=== PATIENT | female | born 1965 | race Caucasian/White ===

== ENCOUNTER → 2016-08-26 | Outpatient (CLI) | payer BC ==
[~2016-08-26] MED LIST: ATOR10TA82 PO; HYDR-5688 PO; HYDR200T5 PO; LOSA50TA6 PO; MAGN250T22 PO; METO50TA7 PO; ONDA4TAB46 PO; PANT1TAB48 PO; RANI300T2 PO; SERT-234 PO; SUMA100T16 PO; URC10 PO
[2016-08-26 15:10] LABS: BLOOD UREA NITROGEN 16 mg/dl (7-18); CREATININE 0.62 mg/dl (0.60-1.20)
== END | disposition home or self-care (01) ==
LOC: C.LAB 14:12
DX: K11.9 Disease of salivary gland, unspecified (principal)

== ENCOUNTER → 2016-08-29 | Outpatient (CLI) | payer BC ==
[~2016-08-29] MED LIST changes: +OPTIRAY 320 IV PRN
--- NOTE | 2016-08-29 08:20 | DIAGNOSTIC IMAGING REPORT ---
CT soft tissue neck SOFT TISSUE NECK COMBO CLINICAL HISTORY: K11.9 Parotid mass PATIENT WITH APPROXIMATELY 1.5 CENTIMETER LEFT mass TECHNIQUE: Pre and post intravenous contrast transaxial acquisition. Multi axial reformatted images COMPARISON STUDY: None FINDINGS: Intramammary node is superficial aspect left parotid measuring 1 cm. An additional 4 mm node is present posteriorly. Several small sub-6 mm cervical nodes bilaterally. No evidence for bulky adenopathy. Apparent surgical removal of submandibular gland. The right submandibular gland is unremarkable. Glottic and subglottic regions appear unremarkable. IMPRESSION: 1. Small left intraparotid lymph nodes Per clinical history. 2. Prior resection of the left submandibular gland. 3. Otherwise negative CT of the soft tissue neck Electronically signed by: Chucho Pearson M.D. 08/29/2016 8:18 AM Dictated Date/Time: 08/29/2016 8:09 AM
== END | disposition home or self-care (01) ==
LOC: C.CTS 07:32
DX: K11.9 Disease of salivary gland, unspecified (principal)

== ENCOUNTER → 2016-09-11 | Outpatient (CLI) | payer BC ==
[~2016-09-11] MED LIST changes: -OPTIRAY 320 IV PRN
--- NOTE | 2016-09-11 13:15 | Discharge Instructions ---
Discharge Instructions Procedure Procedure Date: September 11, 2016. Reason for visit: Parotid Mass,Dr Lira To Do. Discharge Discharge Date: September 11, 2016. Discharge Diagnosis: s/p left parotid lesion FNA Instructions Activity Recommendations: No limitations Return to School/Work: no limitations Recommended Home Diet: No Limitations Provider Instructions: ACTIVITY RECOMMENDATIONS: * Rest today. * Resume regular activity in one day. MEDICATIONS: * May take Tylenol or Ibuprofen as needed for pain. DIET: * Resume previous diet. SPECIAL CARE INSTRUCTIONS: Call your doctor if: * Temperature above 101 degrees F. * Pain not relieved by pain medicine ordered. * Increased drainage or redness from incision. * Notify your doctor with any questions or concerns. Call your doctor or go to the nearest Emergency Department if you experience: * Increased chest pain or shortness of breath. FOLLOW UP VISIT: Follow-up with Referring Physician as scheduled. Allergies Coded Allergies: Sulfa Antibiotics (Verified Allergy, Intermediate, RASH, 04/08/16) Arslan Mir Recommendations: Call your doctor if: * Temperature above 101 degrees * Pain not relieved by pain medicine ordered * There is increased drainage or redness from any incision * You have any unanswered questions or concerns. Your Doctors Instructions noted above were prepared by provider Gordon Lira. Patient Signature Section: Patient Instructions Signature Page Jessica Chacon Patient (or Guardian) Signature/Date: I have read and understand the instructions given to me by my caregivers. Caregiver/RN/Doctor Signature/Date: The above-named patient and/or guardian has received patient instructions on this date. + Original Patient Signature Page (only) stays with chart. Please make copy for patient.
--- NOTE | 2016-09-11 13:38 | DIAGNOSTIC IMAGING REPORT ---
ULTRASOUND GUIDED FINE NEEDLE ASPIRATION OF LEFT PAROTID MASS CLINICAL HISTORY: Left parotid mass. COMPARISON STUDY: Neck CT August 29, 2016. PROCEDURE: Sonography of the left parotid gland demonstrated a 1 cm cystic lesion within the superficial lobe which corresponds to the palpable lesion and reflects the lesion shown on CT of August 29, 2016. This was targeted for aspiration. The procedure, risks and benefits were discussed with the patient including the risk of bleeding, infection and injury to adjacent structures. She agreed to the procedure and informed written consent was obtained. The procedure was performed by Dr. Lira. Skin was prepped and draped in sterile fashion and local anesthesia was achieved with 1% lidocaine. Under direct ultrasound guidance, 3 25-gauge fine needle aspirations were performed. The samples were deemed preliminarily adequate by pathology. The patient tolerated the procedure well and no immediate complications were evident. IMPRESSION: Ultrasound guided fine aspiration of 1 cm left parotid gland mass. Electronically signed by: Gordon Lira M.D. 09/11/2016 1:37 PM Dictated Date/Time: 09/11/2016 1:35 PM
== END | disposition home or self-care (01) ==
LOC: C.ULTR 12:19
DX: K11.9 Disease of salivary gland, unspecified (principal); D72.9 Disorder of white blood cells, unspecified

== ENCOUNTER → 2016-11-18 | Outpatient (CLI) | payer BC ==
[~2016-11-18] MED LIST changes: -ATOR10TA82 PO; +ATOR10TA88 PO; -HYDR-5688 PO
--- NOTE | 2016-11-18 14:10 | DIAGNOSTIC IMAGING REPORT ---
KUB HISTORY: N20.0 [id number] COMPARISON: KUB 03/05/2016. FINDINGS: The bowel gas pattern is unremarkable. There are no dilated loops of small bowel to suggest an obstruction. No renal calculi. No ureteral calculi. Calcifications in the deep pelvis likely represent phleboliths. These remain unchanged. Surgical clips within the right upper quadrant. No pneumoperitoneum or pneumatosis. IMPRESSION: No renal or ureteral stones. Electronically signed by: William Jerez M.D. 11/18/2016 2:09 PM Dictated Date/Time: 11/18/2016 2:07 PM
[2016-11-18 15:08] LABS: BLOOD UREA NITROGEN 20 mg/dl (7-18); BUN/CREATININE RATIO 33.8 (10-20); CALCIUM 9.6 mg/dl (8.5-10.1); CARBON DIOXIDE 27 mmol/L (21-32); CHLORIDE 107 mmol/L (98-107); CREATININE 0.59 mg/dl (0.60-1.20); GLUCOSE 80 mg/dl (70-99); POTASSIUM 3.7 mmol/L (3.5-5.1); SODIUM 140 mmol/L (136-145)
== END | disposition home or self-care (01) ==
LOC: C.RAD 13:24
PROVIDERS: ATTEND Urology
DX: N20.0 Calculus of kidney (principal)

== ENCOUNTER → 2017-03-04 | Outpatient (CLI) | payer BC ==
[~2017-03-04] MED LIST changes: +ATOR10TA82 PO; -ATOR10TA88 PO
--- NOTE | 2017-03-04 07:47 | DIAGNOSTIC IMAGING REPORT ---
LEFT PAROTID ULTRASOUND CLINICAL HISTORY: Left parotid tail cyst status post aspiration. COMPARISON STUDY: Parotid ultrasound September 25, 2014 and October 10, [address] of the neck August 29, 2016. TECHNIQUE: Sonography of the thyroid gland was performed. FINDINGS: The previously aspirated 1 cm cystic lesion with internal color flow within the superficial lobe of the left parotid gland is unchanged since exam of September 25, 2014. A 6 mm round hypoechoic lesion with enhanced through transmission and no color flow within the superficial lobe of the left parotid gland has minimally increased in size since exam of September 25, 2014. This has benign imaging characteristics. IMPRESSION: 1. No change in the 1 cm cystic lesion within the superficial lobe of the left parotid gland since ultrasound of September 25, 2014. This lesion was aspirated on September 11, 2016. 2. 6 mm hypoechoic left parotid gland lesion with no color flow. Minimal increase in size since study of September 25, 2014. The relative stability and sonographic appearance suggest a benign etiology. Electronically signed by: Gordon Lira M.D. 03/04/2017 7:46 AM Dictated Date/Time: 03/04/2017 7:38 AM
== END | disposition home or self-care (01) ==
LOC: C.ULTR 07:07
DX: K11.9 Disease of salivary gland, unspecified (principal)

== ENCOUNTER → 2017-04-10 | Outpatient (CLI) | payer BC ==
[~2017-04-10] MED LIST changes: +PANT1TAB3 PO; -PANT1TAB48 PO
[2017-04-10 12:19] LABS: BASO % 0.4 %; BASO ABS # 0.03 K/uL (0-0.2); COMPLETE YES; EOS % 3.4 %; HEMATOCRIT 43.4 % (37-47); IG% 0.3 %; LYMPH % 28.4 %; LYMPH ABS # 2.12 K/uL (1.2-3.4); MEAN CELL VOLUME 92.3 fL (80-100); MEAN CORPUSCULAR HEMOGLOBIN 29.8 pg (25-34); MEAN CORPUSCULAR HGB CONC 32.3 g/dl (32-36); MEAN PLATELET VOLUME 9.4 fL (7.4-10.4); MONO % 9.5 %; PLATELET COUNT 406 K/uL (130-400); WHITE BLOOD COUNT 7.46 K/uL (4.8-10.8)
[2017-04-10 12:35] LABS: ESTIMATED AVERAGE GLUCOSE 123 mg/dl; HA1C FLAG Normal (Normal)
[2017-04-10 12:39] LABS: ALT/SGPT 36 U/L (12-78); AST/SGOT 19 U/L (15-37); BLOOD UREA NITROGEN 20 mg/dl (7-18); BUN/CREATININE RATIO 28.4 (10-20); CALCIUM 9.2 mg/dl (8.5-10.1); CARBON DIOXIDE 25 mmol/L (21-32); CHLORIDE 106 mmol/L (98-107); CHOLESTEROL 154 mg/dl (0-200); CREATININE 0.71 mg/dl (0.60-1.20); GLUCOSE 107 mg/dl (70-99); POTASSIUM 4.3 mmol/L (3.5-5.1); SODIUM 138 mmol/L (136-145)
[2017-04-10 12:50] LABS: ALKALINE PHOSPHATASE 153 U/L (45-117); CHOLESTEROL/HDL RATIO 2.3; HDL CHOLESTEROL 66 mg/dl; LDL CHOLESTEROL CALCULATED 60 mg/dl; TRIGLYCERIDES 142 mg/dl (0-150); VERY LOW DENSITY LIPOPROT CALC 28 mg/dl
== END | disposition home or self-care (01) ==
LOC: C.LABBFT 09:33
PROVIDERS: ATTEND Internal Medicine
DX: R73.01 Impaired fasting glucose (principal)

== ENCOUNTER → 2017-05-29 | Outpatient (CLI) | payer OTHER ==
[~2017-05-29] MED LIST changes: -METO50TA7 PO; +METO50TA8 PO
--- NOTE | 2017-05-29 19:02 | DIAGNOSTIC IMAGING REPORT ---
R HEEL MIN 2 VIEWS CLINICAL HISTORY: M79.671 pain COMPARISON: None. DISCUSSION: The bones and joint spaces appear intact. There is no evidence of fracture, dislocation or bony disease. 2 mm density inferior to the posterior calcaneus within the soft tissues. This potentially represents vascular calcification, old avulsion, versus a small radiopaque foreign body. IMPRESSION: 1. 2 mm radiopaque density similar to bone density within the soft tissues inferior to the posterior calcaneus. 2. This potentially represents a small vascular calcification, old avulsion, versus foreign body. Clinical correlation is suggested. The above report was generated using voice recognition software. It may contain grammatical, syntax or spelling errors. Electronically signed by: Chucho Pearson M.D. 05/29/2017 7:01 PM Dictated Date/Time: 05/29/2017 6:59 PM
--- NOTE | 2017-05-29 19:04 | DIAGNOSTIC IMAGING REPORT ---
R FOOT MIN 3 VIEWS ROUTINE CLINICAL HISTORY: M79.671 pain COMPARISON: 03/11/2016 DISCUSSION: The bones and joint spaces appear intact. There is no evidence of fracture, dislocation or bony disease. There is no evidence for soft tissue swelling. Note is made that the small radiopaque density within the soft tissues inferior to the posterior calcaneus was present on the prior study. This therefore is considered chronic. IMPRESSION: 1. No acute process of the foot. 2. The 2 mm radiopaque density within the soft tissues inferior to the posterior calcaneus was present on a prior study dated 2015. This is considered chronic and of no acute significance. The above report was generated using voice recognition software. It may contain grammatical, syntax or spelling errors. Electronically signed by: Chucho Pearson M.D. 05/29/2017 7:03 PM Dictated Date/Time: 05/29/2017 7:02 PM
== END | disposition home or self-care (01) ==
LOC: C.RAD 18:41
PROVIDERS: ATTEND Nurse Practitioner
DX: M79.671 Pain in right foot (principal); M79.9 Soft tissue disorder, unspecified

== ENCOUNTER 2017-08-25 17:39 | Emergency (ER) | payer OTHER ==
[~2017-08-25] VITALS: Ht 160 cm; Wt 89.0 kg
[2017-08-25 17:40] VITALS: TEMP 36.5; Ht 160 cm; Wt 89.0 kg
[2017-08-25] MEDS ORDERED: ACETAMINOPHEN 500 MG TAB PO STA (18:14)
--- NOTE | 2017-08-25 18:34 | EMERGENCY ROOM VISIT NOTE ---
ED Visit Note First contact with patient: 17:59 CHIEF COMPLAINT: knee pain HISTORY OF PRESENT ILLNESS: This 51-year-old female patient presents to the emergency department, ambulatory, approximately 12 hours after sustaining an injury to the left knee while attempting to sit at her seat in an airplane. She states that she did not down, her left knee "gave out" and has been popping. She has been unable to put significant amount of pressure on the knee. She has been able to walk, however has been pushed in a wheelchair throughout the rest of her travel. The patient denies any other injuries besides their knee. The patient denies swelling or bruising. There is pain in the inferior aspect of the knee. They rate the pain as sharp and 8/10. The patient states they are able to walk on it, however it is extremely painful. No numbness or tingling. No previous injuries to this knee. No ankle, foot or hip pain. REVIEW OF SYSTEMS: A 6 system review of systems was completed with positives and pertinent negatives listed in the HPI. ALLERGIES: Sulfa MEDICATIONS: Lipitor, Plaquenil, Cozaar, magnesium, Toprol, Zofran, Protonix, potassium, Zantac Zoloft, Imitrex PMH: Migraines, hypertension, heart disease, anxiety, depression, GERD SOCIAL HISTORY: The patient lives locally with family. She denies drug, tobacco , alcohol use. PHYSICAL EXAM: Vital Signs: Reviewed Nurse's notes, vital signs stable. GENERAL : This is a 51-year-old white female, no acute distress, but appears in pain, well-developed, well-nourished. MENTAL STATUS: Alert, oriented to person place and time, and cooperative. MUSCULOSKELETAL: The left knee is not swollen. There is no ecchymosis. There is no obvious joint effusion present. The patient is tender in the anterior inferior aspect of the knee joint. There is mild joint line tenderness. The patella does appropriately subluxate. Range of motion is full. Strength of the quads and hamstrings is 5/5. Solomon's is negative. Cary's and Anterior Drawer tests are negative. There is no discomfort or laxity with varus and valgus stressing. The foot and toes are warm and well-perfused. Dorsalis pedis pulse 2+. Sensation to pain and light touch is intact. Capillary refill less than 2 seconds. RADIOLOGY: L KNEE 3 VIEWS CLINICAL HISTORY: left knee pain COMPARISON: None. DISCUSSION: No fractures or dislocations are visualized. There are no erosive or destructive changes. IMPRESSION: Unremarkable conventional radiographic evaluation of the left knee for age Electronically signed by: Napoleon Ramírez M.D. 08/25/2017 6:39 PM Dictated Date/Time: 08/25/2017 6:39 PM EMERGENCY DEPARTMENT COURSE: I examined the patient. X-rays of the left knee were reviewed by myself and read by radiology and reveal no acute fracture or abnormality. The patient was placed in a knee immobilizer under my direction and the position was satisfactory. The patient was instructed on the use of crutches. The patient was discharged home in good condition. I attest that I have personally reviewed the patient's current medication list. Patient was found to have normal blood pressure on screening and does not require follow-up. Etiologies such as soft tissue injury, fracture, dislocation, neurovascular compromise, compartment syndrome, as well as others were entertained. DIAGNOSIS: Left knee sprain The chart was completed utilizing [employer] Speech voice recognition software. Grammatical errors, random word insertions, pronoun errors, and incomplete sentences are an occasional consequence of this system due to software limitations, ambient noise, and hardware issues. Any formal questions or concerns about the content, text, or information contained within the body of this dictation should be directly addressed to the provider for clarification. Problem List Medical Problems: (1) Acute cholecystitis Status: Resolved (2) GERD (gastroesophageal reflux disease) Status: Chronic (3) Hyperlipidemia Status: Chronic (4) Hypertension Status: Chronic (5) Kidney stone Status: Resolved (6) Thrombocytosis Status: Chronic Surgical Problems: (1) S/P cholecystectomy Status: Resolved Current/Historical Medications Scheduled Atorvastatin (Lipitor), 10 MG PO HS Hydroxychloroquine Sulfate (Plaquenil), 200 MG PO HS Losartan Potassium (Cozaar), 50 MG PO QAM Magnesium Oxide (Magnesium), 1 TAB PO QAM Metoprolol Succ (Toprol Xl) (Toprol-Xl), 50 MG PO QAM Pantoprazole (Protonix), 40 MG PO BID Potassium Citrate (Potassium Citrate), 1 TAB PO BID Ranitidine Hcl (Zantac), 300 MG PO HS Sertraline (Zoloft), 1.5 TAB PO QAM Scheduled PRN Ondansetron Hcl (Zofran), 4 MG PO Q6H PRN for Nausea Sumatriptan Succinate (Imitrex), 100 MG PO PRN PRN for Migraine Allergies Coded Allergies: Sulfa Antibiotics (Verified Allergy, Intermediate, RASH, 08/25/17) Vital Signs Date Time Temp Pulse Resp B/P (MAP) Pulse Ox O2 Delivery O2 Flow Rate FiO2 08/25/17 17:40 36.5 69 20 126/75 94 Room Air Medications Administered Medications (Trade) Dose Ordered Sig/Sina Route Start Time Stop Time Status Last Admin Dose Admin Acetaminophen (Tylenol Tab) 1,000 mg NOW STAT PO 08/25/17 18:14 08/25/17 18:15 DC 08/25/17 18:29 1,000 MG Departure Information Impression Primary Impression: Sprain of knee Dispostion Home / Self-Care Condition GOOD Referrals Kb Back M.D. (PCP) Forrest Delgado D.O. Patient Instructions ED Sprain Knee, My [facility] Additional Instructions You have been treated in the Emergency Department for Knee Pain. X-ray did not show any acute fracture. I suspect a sprain as the cause of your symptoms. For pain control, you can use the following [id number]-[id number] medicines (if >12 yo): Ibuprofen(Motrin, Advil) may be used for fever or pain. Use 600mg every six hours as needed. Take with food. Avoid using more than 2400mg in a 24 hour period. Do not use 2400mg per day for more than three consecutive days without physician direction. Prolonged inappropriate use can lead to stomach upset or ulcers. (AND/OR) Acetaminophen(Tylenol) may be used for fever or pain. Use 1000mg every six hours as needed. Avoid using more than 3000mg in a 24 hour period. If this is a recent injury (<24 hrs), ice can be applied to the area of pain for the first 3 days to help decrease pain and inflammation. Ice massages can be performed by freezing water in a paper cup, peeling back the cup to expose the ice and then massaging over the affected area. You have been provided the number for an Orthopaedic Surgeon. You should call this number as soon as possible to establish a follow-up visit from today's Emergency Department visit. Keep the knee brace/immobilizer in place until cleared by Orthopedics. Use the walker you have been provided to keep weight off of the knee until weight bearing is tolerable. Return to the Emergency Department if your current symptoms worsen despite treatment course outlined above. Problem Qualifiers Primary Impression: Sprain of knee Encounter type: initial encounter Involved ligament of knee: unspecified ligament Laterality: left Qualified Codes: S83.92XA - Sprain of unspecified site of left knee, initial encounter
--- NOTE | 2017-08-25 18:40 | DIAGNOSTIC IMAGING REPORT ---
L KNEE 3 VIEWS CLINICAL HISTORY: left knee pain COMPARISON: None. DISCUSSION: No fractures or dislocations are visualized. There are no erosive or destructive changes. IMPRESSION: Unremarkable conventional radiographic evaluation of the left knee for age Electronically signed by: Napoleon Ramírez M.D. 08/25/2017 6:39 PM Dictated Date/Time: 08/25/2017 6:39 PM
[2017-08-25 19:19] VITALS: BP 144/81; PULSE 62; O2SAT 95
== END 2017-08-25 19:15 | disposition home or self-care (01) ==
LOC: C.EDB 17:39 → C.EDD 19:15
DX: S83.92XA Sprain of unspecified site of left knee, initial encounter (principal); X58.XXXA Exposure to other specified factors, initial encounter; Y92.813 Airplane as the place of occurrence of the external cause; Z88.2 Allergy status to sulfonamides; Z79.899 Other long term (current) drug therapy; I10 Essential (primary) hypertension; F41.9 Anxiety disorder, unspecified; F32.9 Major depressive disorder, single episode, unspecified; K21.9 Gastro-esophageal reflux disease without esophagitis; E78.5 Hyperlipidemia, unspecified; Z87.442 Personal history of urinary calculi; D47.3 Essential (hemorrhagic) thrombocythemia; Z90.49 Acquired absence of other specified parts of digestive tract

== ENCOUNTER → 2017-09-03 | Outpatient (CLI) | payer OTHER ==
--- NOTE | 2017-09-03 13:05 | DIAGNOSTIC IMAGING REPORT ---
L LOWER EXT JOINT WITHOUT CLINICAL HISTORY: 51 years-old Female with LT KNEE PAIN. Acute left knee pain, most pronounced laterally with decreased range of motion. COMPARISON: Left knee radiographs 08/25/2017 TECHNIQUE: Multiplanar, multisequence MRI of the left knee was performed without intravenous contrast. FINDINGS: MENISCI: There is complex multidirectional signal noted involving the posterior junction and posterior horn of the medial meniscus, images 4 through 6 of series 6 and images 16 through 19 of series 5. Mild parameniscal edema without displaced fragment or parameniscal cyst. No definite extension into the posterior meniscal root. The lateral meniscus appears sharp in contour and appears intact. CRUCIATE LIGAMENTS: The posterior cruciate ligament is normal in signal, morphology and course. Complete tear of the anterior crucial ligament is noted with mild edema within the intercondylar notch. COLLATERAL LIGAMENTS: The popliteus tendon, biceps femoris tendon, fibular collateral ligament and iliotibial band are intact. The superficial and deep components of the medial collateral ligament are intact. EXTENSOR MECHANISM: The quadriceps tendon is intact and unremarkable. There is mild thickening of the patellar tendon which may reflect patellar tendinosis however no discrete tear identified. The medial and lateral patellar retinacula are intact. KNEE JOINT: Moderate sized joint effusion. Bone marrow contusions about the posterior lateral aspect of the lateral tibial plateau with subtle cortical impaction fracture and moderate bone marrow edema is noted with mild bone marrow edema also noted involving the lateral femoral condyle at the sulcus terminalis compatible with typical rotary subluxation pattern of trauma. Mild medial and patellofemoral compartment joint space narrowing with areas of low-grade chondromalacia. No high-grade chondromalacia or intra-articular loose body identified. BONE MARROW: No marrow replacing process. Bone marrow edema as above. SOFT TISSUES: Moderate subcutaneous edema within the superficial prepatellar and pretibial tissues. Small Browning's cyst measures up to 4.9 cm in craniocaudal dimension. IMPRESSION: 1. Complete tear of the anterior cruciate ligament with mild edema within the intercondylar notch suggesting acute injury. Additionally, there is moderate bone marrow edema involving the posterior lateral aspect of the lateral tibial plateau with subtle cortical impaction fracture. Mild bone marrow edema is also noted within the lateral femoral condyle at the sulcus terminalis compatible with typical rotary subluxation pattern of bony injury. 2. Complex tear of the posterior horn and posterior junction medial meniscus. 3. Moderate sized joint effusion, likely reactive. 4. Small Browning's cyst. The above report was generated using voice recognition software. It may contain grammatical, syntax or spelling errors. Electronically signed by: Rivas Stephenson M.D. 09/03/2017 1:04 PM Dictated Date/Time: 09/03/2017 12:53 PM
== END | disposition home or self-care (01) ==
LOC: C.MRIBC 11:37
PROVIDERS: ATTEND Orthopaedic Surgery
DX: S83.512A Sprain of anterior cruciate ligament of left knee, initial encounter (principal); S83.242A Other tear of medial meniscus, current injury, left knee, initial encounter; X58.XXXA Exposure to other specified factors, initial encounter; M25.462 Effusion, left knee; M71.22 Synovial cyst of popliteal space [Baker], left knee

== ENCOUNTER → 2017-12-02 | Outpatient (CLI) | payer OTHER ==
[~2017-12-02] MED LIST changes: +ANTI INFLAMMATORY PO; +ASPI81TA25 PO; -MAGN250T22 PO
[2017-12-02 14:50] LABS: BASO % 0.3 %; BASO ABS # 0.03 K/uL (0-0.2); EOS % 1.9 %; EOS ABS # 0.17 K/uL (0-0.5); HEMATOCRIT 42.2 % (37-47); HEMOGLOBIN 13.7 g/dL (12.0-16.0); IG# 0.02 K/uL (0.00-0.02); LYMPH % 28.4 %; LYMPH ABS # 2.57 K/uL (1.2-3.4); MEAN CELL VOLUME 90.8 fL (80-100); MEAN CORPUSCULAR HEMOGLOBIN 29.5 pg (25-34); MEAN CORPUSCULAR HGB CONC 32.5 g/dl (32-36); MEAN PLATELET VOLUME 9.4 fL (7.4-10.4); MONO % 5.2 %; MONO ABS # 0.47 K/uL (0.11-0.59); NEUT ABS # 5.79 K/uL (1.4-6.5); PLATELET COUNT 421 K/uL (130-400); RED CELL DISTRIBUTION WIDTH CV 13.6 % (11.5-14.5); RED CELL DISTRIBUTION WIDTH SD 45.1 fL (36.4-46.3); WHITE BLOOD COUNT 9.05 K/uL (4.8-10.8)
[2017-12-02 15:07] LABS: ALBUMIN 4.1 gm/dl (3.4-5.0); ALKALINE PHOSPHATASE 128 U/L (45-117); ALT/SGPT 35 U/L (12-78); AST/SGOT 24 U/L (15-37); BLOOD UREA NITROGEN 11 mg/dl (7-18); CALCIUM 9.2 mg/dl (8.5-10.1); CARBON DIOXIDE 24 mmol/L (21-32); CREATININE 0.61 mg/dl (0.60-1.20); GLUCOSE 91 mg/dl (70-99); POTASSIUM 3.7 mmol/L (3.5-5.1); SODIUM 139 mmol/L (136-145); TOTAL PROTEIN 7.7 gm/dl (6.4-8.2)
[2017-12-02 15:56] LABS: HEP C IGG 13 YRS+OLDER_RFLX NEG (NEG)
[2017-12-04 09:54] LABS: HEPATITIS B CORE IGM TC51854R NON-REACTIVE (NON-REACTIVE)
[2017-12-04 10:42] LABS: QUANTIF MITOGEN-NIL >10.00 IU/ML; QUANTIFERON NEGATIVE (NEGATIVE); QUANTIFERON NIL 0.01 IU/ML
== END | disposition home or self-care (01) ==
LOC: C.LAB1850 12:13
PROVIDERS: ATTEND Internal Medicine
DX: Z51.81 Encounter for therapeutic drug level monitoring (principal); M46.99 Unspecified inflammatory spondylopathy, multiple sites in spine; Z79.899 Other long term (current) drug therapy

== ENCOUNTER 2024-11-12 07:50 | Observation (INO) ==
--- NOTE | 2024-11-12 08:09 | Emergency Department Note ---
Impression & Plan Acute dehydration, Intractable abdominal pain, Hypokalemia, Acute hyponatremia ED Provider Note Name: JOSÉ MIGUEL FUENTES Age: 59 Sex: Female Arrives Via: Walk-In Informant: Patient ED Provider: Paulino Harper MD Chief Complaint: diarrhea Impression: As per impressions above Medical Decision Making: Pleasant 59-year-old female arrives for evaluation of 5 to 6 days worsening diarrhea cramping associated with fevers, chills, vomiting and abdominal discomfort. Examination she is clearly a bit on the dehydrated side and a bit tachycardic. IV established labs obtained and she was given IV fluids along with some IV narcotic and Zofran for symptom management. She did start feeling better after this but required another round of medications. Laboratory workup consistent with significant dehydration. A CT of the abdomen pelvis was obtained which shows questionable early pancreatitis though lipase is normal and her pain is more diffuse than epigastric. Given degree of dehydration and persistent symptoms patient is agreeable to hospitalization. Hospitalist consulted for further management. Triage/Nursing Notes reviewed by Me External Chart Review by me: I reviewed PCP noted 09/21/24 for past medical history. Differential:Gastroenteritis, food borne illness, infections, pancreatitis, diverticulitis, inflammatory bowel disease, obstruction, GI bleed, biliary pathology, volvulus, as well as other pathologies. Vital Signs: reviewed and remarkable for tachycardia Interventions: Normal Saline bolus IV, morphine IV, Zofran IV Labs:ED labs Reviewed by me and remarkable for consistent with dehydration. UA is dirty though difficult to say that this is infected as patient has no symptoms. Imaging:As per my informal interpretation possible early pancreatitis CT of the ab pelvis with IV contrast no obstruction, free air, free fluid appreciated. Radiologist notes Cardiac/Tele Monitoring: Cardiac Monitoring: An Order was placed for continuous cardiac monitoring. The monitor shows a rate of 115 with a sinus tach rhythm. Consults:Discussed with [facility] hospitalist and planned evaluation and management. Plan: Disposition:Hospitalization. Condition: Fair History of Present Illness: 59-year-old female arrives for evaluation of diarrhea. Patient notes 5 to 6 days of worsening abdominal cramping/discomfort, fevers, chills, severe diarrhea and periodic vomiting. Diarrhea is multiple times a day and severely watery. Denies any blood in the stool. Notes abdominal discomfort is diffuse nonspecific. Denies any blood in emesis. She has been unable to keep down any fluids or medications for the last few days. Denies any falls, trauma, injuries. She is not having any shortness of breath or chest pain. Patient does note a history of a right ankle surgery 8 weeks ago for which she was on antibiotics. She does have a history of severe diarrhea about a year ago requiring IV fluids and an ER visit at that time. No history of C. difficile. No known exposures to sick contacts. Her has not had any symptoms either. Patient has a history of abdominal surgeries with gallbladder removal, appendectomy, hysterectomy as well as a liver tumor removal. No history of bowel obstruction though. Past Medical History: GERD, TIA, hyperlipidemia, anxiety, depression, immunosuppression secondary to medication amongst others Home Medications:See Below Allergies: Sulfa, metformin Vitals:Blood Pressure: 124/82, Pulse 115, RR 20, T 37.6 C, O2 95% on RA Physical Exam: GENERAL: Patient is dehydrated and uncomfortable appearing and in moderate distress. Dry mucous membranes RESPIRATORY: No dyspnea. Clear to auscultation and equal bilaterally. CARDIOVASCULAR: Tachycardic.No murmur appreciated. GASTROINTESTINAL: Abdomen is soft without peritonitis though nonspecific diffuse tenderness palpation. EXTREMITIES: Normal motion all extremities, no cyanosis, no edema. NEUROLOGIC: Alert and oriented. No focal neurologic deficits appreciated SKIN: No rash, no jaundice, no diaphoresis. PSYCH: Appropriate GCS: 15 ED Course: Times/Reassessments: Patient is feeling a bit better with heart rate starting to come down though still appears dehydrated and requiring repeat dosing of medications and thus will bring in for further management. Paulino Harper MD Past Med/Surg History Problem List (Updated 11/13/24 @ 06:42 by Paulino Harper MD) Acute hyponatremia (Acute) Hypokalemia (Acute) Intractable abdominal pain (Acute) Acute dehydration (Acute) Gastroenteritis Medical marijuana use Obesity (BMI 30.0-34.9) Immunosuppression due to drug therapy Lumbar spondylosis Chronic diarrhea Seronegative polyarthritis HLA B 27 positive, [facility] with [facility] Rheumatology Trochanteric bursitis of both hips Insomnia Depression Vitamin D deficiency (Chronic) Thrombocytosis (Chronic ~09/2013) Chronic since ~ 2005 S/P cholecystectomy (Chronic) Facet arthropathy, lumbosacral Lumbar spinal stenosis moderate to severe at L4-L5 Hypertension (Chronic) GERD (gastroesophageal reflux disease) (Chronic) Hyperlipidemia (Chronic) TIA (transient ischemic attack) (Chronic) PER RECORDS, SEEN AT [facility] in 2016 FOR ACUTE UE NUMBNESS/PARESTHESIAS. BRAIN IMAGING AND CAROTID US WNL, no further issues Anxiety Medical History Kidney stones Thrombocytosis Arthritis Prediabetes History of COVID-19 Pneumonia Hiatal hernia Depression Migraine Surgical History History of cystoscopy Hx of lymph node excision Hx of foot surgery History of liver biopsy History of dilatation and curettage History of section History of bilateral tubal ligation History of hysterectomy History of carpal tunnel release History of repair of ACL History of lithotripsy History of esophagogastroduodenoscopy (EGD) History of colonoscopy History of appendectomy History of cholecystectomy History of tonsillectomy Family History Other No known health problems Denies family history of Ovarian cancer Prostate cancer Myocardial infarction Breast cancer Colorectal cancer Social History Smoking Status: Never smoker Second Hand Exposure: No; Do You Dip or Chew Tobacco: No; Hx Alcohol Use: No Hx Substance Use: No Preferred Language: Wolof Communication Ability: Effective Visual Impairment: No Limitations Senior Animator Required: No Beliefs That Will Affect Care: None marital status: Current Living Situation: Spouse current occupational status: employed and retired current occupation: [employer]KS [employer] Feels Safe at Home: Yes Safety Concerns: Feels Safe At This Time Diet: regular caffeine: Yes Dental Care, Regularly: Yes Physical Activity Frequency: Daily Seatbelt Use: always Sunscreen Use: Yes Assistive Devices: Glasses Allergies Allergies Allergy/AdvReac Type Severity Reaction Status Date / Time Sulfa (Sulfonamide Allergy Intermediate RASH Verified 11/12/24 09:51 Antibiotics) metformin AdvReac Mild Abdominal Verified 11/12/24 09:51 Pain Home Meds Home Medications Medication Instructions Recorded Confirmed hydroxychloroquine 200 mg tablet 400 mg PO QPM 06/11/18 11/12/24 ixekizumab 80 mg/mL subcutaneous 80 mg subcut MONTHLY 02/13/22 11/12/24 auto-injector (Taltz Autoinjector) sulindac 200 mg tablet 200 mg PO BID 04/30/23 11/12/24 leflunomide 10 mg tablet 10 mg PO DAILY 11/12/24 11/12/24 Previous Rx's Medication Instructions Recorded atenolol 25 mg tablet 25 mg PO QAM 90 days #90 tabs 11/12/23 losartan 50 mg-hydrochlorothiazide 1 tab PO QAM #90 tabs 06/21/24 12.5 mg tablet sertraline 100 mg tablet 200 mg (2 x 100 mg) PO QAM #180 06/27/24 tabs atorvastatin 20 mg tablet 20 mg PO HS #90 tabs 07/28/24 sumatriptan succinate 100 mg 100 mg PO ONCE PRN Pain #9 tabs 09/14/24 tablet (Imitrex) famotidine 40 mg tablet 40 mg PO DAILY #90 tabs 09/19/24 pantoprazole 40 mg tablet,delayed 40 mg PO BID 4 weeks #60 tabs 10/24/24 release (Protonix) hyoscyamine sulfate 0.125 mg tablet 0.125 mg PO BID PRN spasms #20 tabs 10/26/24 Results & Data (ED) Vital Signs Vital Signs - 24 hr 11/12/24 07:55 11/12/24 08:32 11/12/24 08:42 Temperature 37.6 C H Temperature Source Oral Pulse Rate 115 H 111 H 92 H Pulse Rate from SpO2 Sensor Pulse Rhythm Regular Pulse Strength Normal Respiratory Rate 20 12 Respiratory Effort / Characteristics Non-Labored Spontaneous Respiratory Depth Normal Respiratory Pattern Regular Blood Pressure 124/82 Blood Pressure Mean 96 Blood Pressure Position Sitting Pulse Oximetry 95 Oxygen Delivery Method Room Air Sepsis Recent Fever Within 48 Hours Yes Sepsis New/Unexplained Change in Mental Status No Sepsis Action Taken by Nursing No Action Required 11/12/24 09:24 11/12/24 09:24 Temperature Temperature Source Pulse Rate Pulse Rate from SpO2 Sensor 97 H Pulse Rhythm Pulse Strength Respiratory Rate Respiratory Effort / Characteristics Respiratory Depth Respiratory Pattern Blood Pressure 136/80 Blood Pressure Mean 109 Blood Pressure Position Pulse Oximetry 95 Oxygen Delivery Method Sepsis Recent Fever Within 48 Hours Sepsis New/Unexplained Change in Mental Status Sepsis Action Taken by Nursing Laboratory Data 11/13/24 05:57 11/12/24 12:11 Lab Results 11/12/24 11/12/24 Range/Units 08:14 09:20 WBC 20.22 H (4.8-10.8) K/ul RBC 5.11 (4.20-5.40) M/uL Hgb 14.3 (12.0-16.0) g/dl Hct 41.4 (37.0-47.0) % MCV 81.0 (80.0-100.0) fL MCH 28.0 (25.0-34.0) pg MCHC 34.5 (32.0-36.0) g/dL RDW Std Deviation 40.4 (36.4-46.3) fL RDW Coeff of Alesia 13.7 (11.5-14.5) % Plt Count 442 H (130-400) K/uL MPV 9.0 L (9.4-12.4) fL Immature Gran % (Auto) 0.8 % Neut % (Auto) 84.7 % Lymph % (Auto) 5.6 % [place] % (Auto) 8.3 % Eos % (Auto) 0.1 % Baso % (Auto) 0.5 % Neut # (Auto) 17.13 H (1.40-6.50) K/uL Lymph # (Auto) 1.13 L (1.20-3.40) K/uL [place] # (Auto) 1.67 H (0.11-0.59) K/uL Eos # (Auto) 0.02 (0.00-0.50) K/uL Baso # (Auto) 0.11 (0.00-0.20) K/uL Immature Gran # (Auto) 0.16 (0.01-0.20) K/uL Sodium 128 L (136-145) mmol/L Potassium 2.8 L (3.5-5.1) mmol/L Chloride 91 L (98-107) mmol/L Carbon Dioxide 19 L (21-32) mmol/L Anion Gap 18 H (3-11) BUN 26 H (6-23) mg/dl Creatinine 0.92 (0.6-1.2) mg/dl Est Cr Clr Drug Dosing Not Reportable eGFR 70.84 BUN/Creatinine Ratio 28.3 H (10-20) Glucose 145 H (70-99(Fasting)) mg/dl Lactate 1.6 (0.4-2.0) mmol/L Calcium 9.6 (8.6-10.3) mg/dl Magnesium 2.4 (1.7-2.4) mg/dl Total Bilirubin 0.7 (0.2-1.0) mg/dl Direct Bilirubin 0.3 H (0-0.2) mg/dl AST 21 (13-39) U/L ALT 18 (7-52) U/L Alkaline Phosphatase 129 H (34-104) U/L Total Protein 7.9 (6.0-8.3) gm/dl Albumin 4.0 (3.4-5.0) gm/dl Lipase 5 L (11-82) U/L Urine Color Yellow Urine Appearance Cloudy A (Clear) Urine pH 6.0 (4.5-7.5) Ur Specific Thompson 1.010 (1.000-1.030) Urine Protein 2+ H (Negative) Urine Glucose (UA) Negative (Negative) Urine Ketones 1+ H (Negative) Urine Blood 2+ H (Negative) Urine Nitrite Positive A (Negative) Urine Bilirubin Negative (Negative) Urine Urobilinogen Negative (Negative) Ur Leukocyte Esterase 2+ H (Negative) Urine WBC (Auto) >50 H (0-5) /hpf Urine RBC (Auto) 3-5 H (0-2) /hpf U Hyaline Cast (Auto) 0-2 (0-2) /lpf U Epithel Cells (Auto) 3-5 H (0-2) /hpf Urine Bacteria (Auto) 4+ H (None Seen) Urine Mucus Present A (None Prsent) Urine Yeast Present A (None Prsent) Urine Comment Administered Medications Acetaminophen (Acetaminophen 325 Mg Tab) 325 mg PO Q4H PRN PRN Reason: mild Pain or Fever Stop: 12/12/24 16:38 Last Admin: 11/12/24 16:57 Dose: 325 mg Documented By: ANGEL Atorvastatin Calcium (Atorvastatin 20 Mg Tab) 20 mg PO HS [facility] Stop: 12/12/24 20:59 Last Admin: 11/12/24 22:10 Dose: 20 mg Documented By: LINDA Heparin Sodium (Porcine) (Heparin Sod 5,000 Unit/0.5 Ml Vial) 5,000 units SQ Q8 ALEC Stop: 12/12/24 13:59 Last Admin: 11/13/24 05:25 Dose: 5,000 units Documented By: Admin: 11/12/24 22:09 Dose: 5,000 units Documented By: Admin: 11/12/24 14:24 Dose: 5,000 units Documented By: ANGEL Lactated Ringer's (Lr) 1,000 mls @ 125 mls/hr IV .Q8H [facility] Stop: 11/15/24 11:14 Last Admin: 11/12/24 22:29 Dose: 125 mls/hr Documented By: Infusion: 11/12/24 22:29 Dose: Infused Documented By: Infusion: 11/12/24 16:27 Dose: 125 mls/hr Documented By: Infusion: 11/12/24 15:36 Dose: 0 mls/hr Documented By: Admin: 11/12/24 14:11 Dose: 125 mls/hr Documented By: ANGEL Morphine Sulfate (Morphine Sulfate 2 Mg/Ml Carp) 1 mg IV Q4H PRN PRN Reason: Severe Pain (Scale 7, 8, 9,10) Stop: 11/26/24 16:38 Last Admin: 11/12/24 19:57 Dose: 1 mg Documented By: LINDA Ondansetron HCl (Ondansetron Inj 2 Mg/Ml 2 Ml Vial) 4 mg IV Q6H PRN PRN Reason: Nausea Stop: 12/12/24 10:53 Last Admin: 11/12/24 22:30 Dose: 4 mg Documented By: Admin: 11/12/24 12:41 Dose: 4 mg Documented By: ANGEL Pantoprazole Sodium (Pantoprazole 40 Mg Tab) 40 mg PO BID [facility] Stop: 12/12/24 20:59 Last Admin: 11/12/24 22:10 Dose: 40 mg Documented By: LINDA Sulindac (Sulindac 200 Mg Tab) 200 mg PO BID [facility] Stop: 12/12/24 20:59 Last Admin: 11/12/24 22:28 Dose: 200 mg Documented By: LINDA Discontinued Medications Sodium Chloride (Nss) 1,000 mls @ 999 mls/hr IV .Q1H1M ONE Stop: 11/12/24 09:04 Last Infusion: 11/12/24 09:20 Dose: Infused Documented By: Admin: 11/12/24 08:17 Dose: 999 mls/hr Documented By: CHIQUI Sodium Chloride (Nss) 1,000 mls @ 999 mls/hr IV .Q1H1M ONE Stop: 11/12/24 09:51 Last Infusion: 11/12/24 10:52 Dose: Infused Documented By: Admin: 11/12/24 09:42 Dose: 999 mls/hr Documented By: CHIQUI Potassium Chloride (K Jeremías / Wtr) 10 meq in 100 mls @ 100 mls/hr IV Q1H ALEC Stop: 11/12/24 14:59 Last Infusion: 11/12/24 21:04 Dose: Infused Documented By: Admin: 11/12/24 17:41 Dose: 100 mls/hr Documented By: Infusion: 11/12/24 17:27 Dose: Infused Documented By: Admin: 11/12/24 16:27 Dose: 100 mls/hr Documented By: Infusion: 11/12/24 16:26 Dose: Infused Documented By: Admin: 11/12/24 15:26 Dose: 100 mls/hr Documented By: ANGEL Magnesium Sulfate/Dextrose (Magnesium Sulfate / D5w) 1 gm in 100 mls @ 50 mls/hr IV ONE ONE Stop: 11/12/24 13:29 Last Infusion: 11/12/24 16:33 Dose: Infused Documented By: Admin: 11/12/24 14:11 Dose: 50 mls/hr Documented By: ANGEL Ioversol (Optiray 320 100ml) 94 ml IV ONCE ONE Stop: 11/12/24 09:09 Last Admin: 11/12/24 09:08 Dose: 94 ml Documented By: NEIL Miscellaneous (Patient's Height &/Or Weight Needed) 1 each N/A Q2H STA Stop: 11/12/24 11:10 Last Admin: 11/12/24 11:16 Dose: Not Given Documented By: OSCAR Morphine Sulfate (Morphine Sulfate 4 Mg/Ml 1 Ml Carp\Vial) 4 mg IV NOW STA Stop: 11/12/24 08:05 Last Admin: 11/12/24 08:20 Dose: 4 mg Documented By: CHIQUI Morphine Sulfate (Morphine Sulfate 10 Mg/Ml Carp/Vial) 6 mg IV NOW STA Stop: 11/12/24 09:32 Last Admin: 11/12/24 09:47 Dose: 6 mg Documented By: CHIQUI Ondansetron HCl (Ondansetron Inj 2 Mg/Ml 2 Ml Vial) 4 mg IV NOW STA Stop: 11/12/24 08:05 Last Admin: 11/12/24 08:17 Dose: 4 mg Documented By: CHIQUI Ondansetron HCl (Ondansetron Inj 2 Mg/Ml 2 Ml Vial) 4 mg IV NOW STA Stop: 11/12/24 09:32 Last Admin: 11/12/24 09:42 Dose: 4 mg Documented By: CHIQUI Discharge Plan Visit Data Chief Complaint: Illness Stated Complaint: DIARRHEA, HASN'T EATEN, ABD PAIN, DRY HEAVES ED Provider: Paulino Harper Discharge Problem: Acute dehydration, Intractable abdominal pain, Hypokalemia, Acute hyponatremia Patient Disposition: Admitted As Inpatient Condition: Fair Discharge Instructions Interventions: ED Discharge Assessment Last Done: 11/12/24 11:54
[2024-11-12] MEDS: SODIUM CHLORIDE 0.9% 1,000 ML IV ONE ×2 (08:17→09:42)
[2024-11-12] MEDS: ONDANSETRON INJ 2 MG/ML 2 ML VIAL IV STA ×2 (08:17→09:42)
[2024-11-12] MEDS: MoRPHine SULFATE 4 MG/ML 1 ML CARP\\VIAL IV STA (08:20)
[2024-11-12 08:31] LABS: Hematocrit (blood only) 41.4 % (37.0-47.0); Hemoglobin 14.3 g/dl (12.0-16.0); Immature Granulocytes # (auto) 0.16 K/uL (0.01-0.20); Immature Granulocytes % (auto) 0.8 %; Mean Corpuscular Hemoglobin 28.0 pg (25.0-34.0); Mean Corpuscular Volume 81.0 fL (80.0-100.0); Platelet Count 442 K/uL (130-400); RDW Standard Deviation 40.4 fL (36.4-46.3); Red Blood Count 5.11 M/uL (4.20-5.40); White Blood Count 20.22 K/ul (4.8-10.8)
[2024-11-12 08:49] LABS: Alanine Aminotransferase 18 U/L (7-52); Alkaline Phosphatase 129 U/L (34-104); Anion Gap 18 (3-11); Bilirubin,Total 0.7 mg/dl (0.2-1.0); Blood Urea Nitrogen 26 mg/dl (6-23); Calcium 9.6 mg/dl (8.6-10.3); Carbon Dioxide 19 mmol/L (21-32); Chloride 91 mmol/L (98-107); Glucose 145 mg/dl (70-99(Fasting)); Lipase 5 U/L (11-82); Magnesium 2.4 mg/dl (1.7-2.4); Potassium 2.8 mmol/L (3.5-5.1); Sodium 128 mmol/L (136-145); Total Protein 7.9 gm/dl (6.0-8.3)
[2024-11-12] MEDS: OPTIRAY 320 100ml IV ONE (09:08)
--- NOTE | 2024-11-12 09:29 | CT Scan Report ---
ABDOMEN AND PELVIS CT WITH IV CONTRAST CT DOSE: 1315.22 mGy.cm HISTORY: diffuse abdo pain, diarrhea, wbc elevated TECHNIQUE: Multiaxial CT images of the abdomen and pelvis were performed following the IV administrat ion of 90 cc of Optiray, A dose lowering technique was utilized adhering to the principles of ALARA. COMPARISON STUDY: 11/05/2024 through 06/29/2023 FINDINGS: Gallbladder is surgically absent. Stable mild distention of the common bile duct, common af ter cholecystectomy. Stable partial resection of the right hepatic lobe. Stable small hypodensities posterior inferior aspect of the liver. Otherwise the liver, spleen, and right adrenal gland are unre markable. 12 mm left adrenal nodule is stable. Kidneys show no hydronephrosis or calculi. There is in terval mild stranding adjacent to the tail of the pancreas suggesting early pancreatitis. Otherwise t he pancreas is unremarkable. There are mild atherosclerotic calcifications. No abdominal aortic aneur ysm. Pelvis: Uterus is absent. No adnexal mass. Urinary bladder is nondistended. There is mild sigmoid div erticulosis. No acute diverticulitis. No bowel inflammation or obstruction. No free fluid, free air, or abscess. No enlarged adenopathy. Osseous structures: There is moderate lower lumbar degenerative disc disease. There are mild degenera tive changes at the hips. IMPRESSION: 1. Possible early distal pancreatitis. 2. No other acute findings seen. Otherwise as described. ACT 112: Negative or not required by law. The above report was generated using voice recognition software. It may contain grammatical, syntax o r spelling errors. Electronically signed by: Rupert Sullivan M.D. 11/12/2024 9:27 AM
[2024-11-12] MEDS: MoRPHine SULFATE 10 MG/ML CARP/VIAL IV STA (09:47)
[2024-11-12 09:53] LABS: Appearance Urine Cloudy (Clear); Bacteria Urine Automated 4+ (None Seen); Glucose Urine UA Negative (Negative); WBC Urine Automated >50 /hpf (0-5)
[2024-11-12 10:11] LABS: Cast Urine Automated 0-2 /lpf (0-2)
--- NOTE | 2024-11-12 10:51 | History & Physical Report ---
Date of Service November 12, 2024 Assessment & Plan (1) Obesity (BMI 30.0-34.9): (2) Immunosuppression due to drug therapy: (3) Chronic diarrhea: (4) Gastroenteritis: Plan 59 female GERD TIA hyperlipidemia anxiety depression Seronegative polyarthritis on immunosuppressants Obesity Insomnia depression hypertension GERD hyperlipidemia lumbar spinal stenosis Kidney stones prediabetes gallbladder removal, appendectomy, hysterectomy as well as a liver tumor removal who presents with frequent nonbloody diarrhea crampy abdominal pain nausea vomiting fevers chills for the past 5 days. Multiple episodes of diarrhea per day.Has not been able to keep any Water or food down.No known sick contacts or travel. No history of C. difficile. Patient does note a history of a right ankle surgery 8 weeks ago for which she was on antibiotics. Nausea vomiting abdominal pain diarrhea suspect gastroenteritis Supportive care IV fluids P.o. intake as tolerated Stool studies C. difficile testing Radiographic pancreatitis? Lipase WNL Would benefit from repeat imaging in near future. If symptoms persist will consult GI. Hyponatremia in setting of the above As above and monitor Hypokalemia Replete as needed History of seronegative arthritis on immunosuppressive's Hold immunosuppressants DVT prophylaxis Full code Disposition admit for observation History of Present Illness Chief Complaint: Diarrhea Primary Care Provider: Kaity Scanlon MD 59 female GERD TIA hyperlipidemia anxiety depression Seronegative polyarthritis on immunosuppressants Obesity Insomnia depression hypertension GERD hyperlipidemia lumbar spinal stenosis Kidney stones prediabetes gallbladder removal, appendectomy, hysterectomy as well as a liver tumor removal who presents with frequent nonbloody diarrhea crampy abdominal pain nausea vomiting fevers chills for the past 5 days. Multiple episodes of diarrhea per day.Has not been able to keep any Water or food down.No known sick contacts or travel. No history of C. difficile. Patient does note a history of a right ankle surgery 8 weeks ago for which she was on antibiotics. No lightheadedness chest pain shortness of breath or any other symptoms. We discussed abnormal urinalysis findings.No notable symptoms no hematuria hesitancy urgency or any other symptoms. She recently had mild hematuria and some urinary symptoms that was being worked up by her PCP for possibleRecurrent nephrolithiasis.At this time this is essentially resolved. Patient understands to have a low threshold to let me know if develops any urinary symptoms in which case we will initiate antibiotics. at bedside. We all discussed everything extensively they are appreciative Discussed with ED physician Who feels this is gastroenteritis. We discussed radiographic pancreatitis and normal lipase He is unimpressed with this. Allergies Allergy/AdvReac Type Severity Reaction Status Date / Time Sulfa (Sulfonamide Allergy Intermediate RASH Verified 11/12/24 09:51 Antibiotics) metformin AdvReac Mild Abdominal Verified 11/12/24 09:51 Pain Home Medications Medication Instructions Recorded Confirmed Type hydroxychloroquine 200 mg tablet 400 mg PO QPM 06/11/18 11/12/24 History ixekizumab 80 mg/mL subcutaneous 80 mg subcut MONTHLY 02/13/22 11/12/24 History auto-injector (Taltz Autoinjector) sulindac 200 mg tablet 200 mg PO BID 04/30/23 11/12/24 History atenolol 25 mg tablet 25 mg PO QAM 90 days #90 tabs 11/12/23 11/12/24 Rx losartan 50 mg-hydrochlorothiazide 1 tab PO QAM #90 tabs 06/21/24 11/12/24 Rx 12.5 mg tablet sertraline 100 mg tablet 200 mg (2 x 100 mg) PO QAM #180 06/27/24 11/12/24 Rx tabs atorvastatin 20 mg tablet 20 mg PO HS #90 tabs 07/28/24 11/12/24 Rx sumatriptan succinate 100 mg 100 mg PO ONCE PRN Pain #9 tabs 09/14/24 11/12/24 Rx tablet (Imitrex) famotidine 40 mg tablet 40 mg PO DAILY #90 tabs 09/19/24 11/12/24 Rx pantoprazole 40 mg tablet,delayed 40 mg PO BID 4 weeks #60 tabs 10/24/24 Rx release (Protonix) hyoscyamine sulfate 0.125 mg tablet 0.125 mg PO BID PRN spasms #20 tabs 10/26/24 11/12/24 Rx leflunomide 10 mg tablet 10 mg PO DAILY 11/12/24 11/12/24 History Past Med/Surg History Problem List (Updated 11/12/24 @ 11:02 by Maribel Butts MD) Gastroenteritis Medical marijuana use Obesity (BMI 30.0-34.9) Immunosuppression due to drug therapy Lumbar spondylosis Chronic diarrhea Seronegative polyarthritis HLA B 27 positive, follows with [facility] Trochanteric bursitis of both hips Insomnia Depression Vitamin D deficiency (Chronic) Thrombocytosis (Chronic ~09/2013) Chronic since ~ 2005 S/P cholecystectomy (Chronic) Facet arthropathy, lumbosacral Lumbar spinal stenosis moderate to severe at L4-L5 Hypertension (Chronic) GERD (gastroesophageal reflux disease) (Chronic) Hyperlipidemia (Chronic) TIA (transient ischemic attack) (Chronic) PER RECORDS, SEEN AT [facility] in 2016 FOR ACUTE UE NUMBNESS/PARESTHESIAS. BRAIN IMAGING AND CAROTID US WNL, no further issues Anxiety Medical History Kidney stones Thrombocytosis Arthritis Prediabetes History of COVID-19 Pneumonia Hiatal hernia Depression Migraine Surgical History History of cystoscopy Hx of lymph node excision Hx of foot surgery History of liver biopsy History of dilatation and curettage History of section History of bilateral tubal ligation History of hysterectomy History of carpal tunnel release History of repair of ACL History of lithotripsy History of esophagogastroduodenoscopy (EGD) History of colonoscopy History of appendectomy History of cholecystectomy History of tonsillectomy Family History Other No known health problems Denies family history of Ovarian cancer Prostate cancer Myocardial infarction Breast cancer Colorectal cancer Social History Smoking Status: Never smoker Second Hand Exposure: No; Do You Dip or Chew Tobacco: No; Hx Alcohol Use: Yes Alcohol type: wine and hard liquor Alcohol Intake Frequency: Monthly or Less Hx Substance Use: No Preferred Language: Thai Communication Ability: Effective Visual Impairment: No Limitations Manager Residential Required: No Beliefs That Will Affect Care: None marital status: Current Living Situation: Spouse current occupational status: employed and retired current occupation: [employer]KS [employer] Feels Safe at Home: Yes Diet: regular caffeine: Yes Dental Care, Regularly: Yes Physical Activity Frequency: Daily Seatbelt Use: always Sunscreen Use: Yes Assistive Devices: Glasses and Hearing Aid - Bilateral Review of Systems Review of Systems: A total of 10 systems was reviewed and is negative other than as listed in the HPI Physical Exam Constitutional: WD/WN, vitals as above Respiratory: normal respiratory effort, lungs clear to auscultation Cardiovascular: RRR, no murmur, no edema Gastrointestinal (Abdomen): Soft Mild tenderness diffusely no rebound or guarding Results & Data Results & Data Vital Signs (Past 12 Hours) Vital Signs Temp Pulse Resp BP Pulse Ox O2 Del Method 11/12/24 09:24 136/80 11/12/24 09:24 95 11/12/24 08:42 92 H 12 11/12/24 08:32 111 H 11/12/24 07:55 37.6 C H 115 H 20 124/82 95 Room Air Laboratory Results Abnormal Labs 11/12/24 11/12/24 08:14 09:20 WBC 20.22 H Plt Count 442 H MPV 9.0 L Neut # (Auto) 17.13 H Lymph # (Auto) 1.13 L Gillespie # (Auto) 1.67 H Sodium 128 L Potassium 2.8 L Chloride 91 L Carbon Dioxide 19 L Anion Gap 18 H BUN 26 H BUN/Creatinine Ratio 28.3 H Glucose 145 H Direct Bilirubin 0.3 H Alkaline Phosphatase 129 H Lipase 5 L Urine Appearance Cloudy A Urine Protein 2+ H Urine Ketones 1+ H Urine Blood 2+ H Urine Nitrite Positive A Ur Leukocyte Esterase 2+ H Urine WBC (Auto) >50 H Urine RBC (Auto) 3-5 H U Epithel Cells (Auto) 3-5 H Urine Bacteria (Auto) 4+ H Urine Mucus Present A Urine Yeast Present A Diagnostic Findings Abdomen/Pelvis CT 11/12/24 08:[address] WITH IV CONTRAST CT DOSE: 1315.22 mGy.cm HISTORY: diffuse abdo pain, diarrhea, wbc elevated TECHNIQUE: Multiaxial CT images of the abdomen and pelvis were performed following the IV administration of 90 cc of Optiray, A dose lowering technique was utilized adhering to the principles of ALARA. COMPARISON STUDY: 11/05/2024 through 06/29/2023 FINDINGS: Gallbladder is surgically absent. Stable mild distention of the common bile duct, common after cholecystectomy. Stable partial resection of the right hepatic lobe. Stable small hypodensities posterior inferior aspect of the liver. Otherwise the liver, spleen, and right adrenal gland are unremarkable. 12 mm left adrenal nodule is stable. Kidneys show no hydronephrosis or calculi. There is interval mild stranding adjacent to the tail of the pancreas suggesting early pancreatitis. Otherwise the pancreas is unremarkable. There are mild atherosclerotic calcifications. No abdominal aortic aneurysm. Pelvis: Uterus is absent. No adnexal mass. Urinary bladder is nondistended. There is mild sigmoid diverticulosis. No acute diverticulitis. No bowel inflammation or obstruction. No free fluid, free air, or abscess. No enlarged adenopathy. Osseous structures: There is moderate lower lumbar degenerative disc disease. There are mild degenerative changes at the hips. IMPRESSION: 1. Possible early distal pancreatitis. 2. No other acute findings seen. Otherwise as described. ACT 112: Negative or not required by law. The above report was generated using voice recognition software. It may contain grammatical, syntax or spelling errors. Electronically signed by: Rupert Sullivan M.D. 11/12/2024 9:27 AM PG Care Time/CCT Total # of Minutes Spent Total Time Spent with Patient: Total time spent is greater than 50% in coordination of care (as documented) at patient's floor/unit and/or counseling patient: Coding Level of Care Code 64701 INT INP/OBS CARE 2/55MIN Diagnoses Obesity (BMI 30.0-34.9) E66.9 Immunosuppression due to drug therapy D84.821; Z79.899 Chronic diarrhea K52.9 Gastroenteritis K52.9
[2024-11-12] MEDS ORDERED: POTASSIUM CHLORIDE / WTR 10 MEQ/100 ML PLCT IV SCH (11:15)
[2024-11-12] MEDS: Patient's HEIGHT &/or WEIGHT Needed STA (11:16)
[2024-11-12 12:34] LABS: Hematocrit (blood only) 38.1 % (37.0-47.0); Hemoglobin 12.9 g/dl (12.0-16.0); Mean Corpuscular Hemoglobin 28.1 pg (25.0-34.0); Mean Corpuscular Volume 83.0 fL (80.0-100.0); Platelet Count 387 K/uL (130-400); RDW Standard Deviation 41.4 fL (36.4-46.3); Red Blood Count 4.59 M/uL (4.20-5.40); White Blood Count 10.50 K/ul (4.8-10.8)
[2024-11-12] MEDS: ONDANSETRON INJ 2 MG/ML 2 ML VIAL IV PRN (12:41)
[2024-11-12 12:51] LABS: Alanine Aminotransferase 17.0 U/L (7-52); Albumin Globulin Ratio 0.9 (0.9-2); Alkaline Phosphatase 137.0 U/L (34-104); Anion Gap 14.0 (3-11); Bilirubin,Total 1.0 mg/dl (0.2-1.0); Blood Urea Nitrogen 23.0 mg/dl (6-23); Calcium 8.8 mg/dl (8.6-10.3); Carbon Dioxide 20.0 mmol/L (21-32); Chloride 97.0 mmol/L (98-107); Creatinine Clr Calc Pharmacy 68.2 ml/min; Globulin 3.8 gm/dl (2.5-4.0); Glucose 110.0 mg/dl (70-99(Fasting)); Potassium 2.8 mmol/L (3.5-5.1); Sodium 131.0 mmol/L (136-145); Total Protein 7.2 gm/dl (6.0-8.3)
[2024-11-12] MEDS: MAGNESIUM SULFATE / D5W 1 GM/100 ML BAG IV ONE (14:11)
[2024-11-12] MEDS: LACTATED RINGER'S 1,000 ML IV SCH (14:11)
[2024-11-12] MEDS: HEPARIN SOD 5,000 UNIT/0.5 ML VIAL SQ SCH (14:24)
[2024-11-12] MEDS: POTASSIUM CHLORIDE / WTR 10 MEQ/100 ML PLCT IV SCH (15:26)
[2024-11-12] MEDS ORDERED: MoRPHine SULFATE 2 MG/ML CARP IV PRN (16:39)
[2024-11-12] MEDS ORDERED: IBUPROFEN 200 MG TAB PO PRN (16:39)
[2024-11-12] MEDS: ACETAMINOPHEN 325 MG TAB PO PRN (16:57)
[2024-11-12] MEDS: MoRPHine SULFATE 2 MG/ML CARP IV PRN (19:57)
[2024-11-12] MEDS: ATORVASTATIN 20 MG TAB PO SCH (22:10)
[2024-11-12] MEDS: SULINDAC 200 MG TAB PO SCH (22:28)
[2024-11-13 03:04] LABS: Adenovirus F 40/41 PCR Not Detected (NotDetected); Campylobacter PCR Not Detected (NotDetected); Enteroaggregative E.coli(EAEC) Not Detected (NotDetected); Shiga-like Toxin E.coli (STEC) Not Detected (NotDetected); Vibrio species PCR Not Detected (NotDetected)
[2024-11-13 03:28] LABS: Cdiff Toxin B Gene (2yr or >) Positive Cdiff Gene (Neg)
[2024-11-13 03:29] LABS: Cdiff Toxin A+B Negative Cdiff Toxin (Negative)
[2024-11-13 06:23] LABS: Hematocrit (blood only) 31.5 % (37.0-47.0); Hemoglobin 11.0 g/dl (12.0-16.0); Mean Corpuscular Hemoglobin 29.3 pg (25.0-34.0); Mean Corpuscular Volume 83.8 fL (80.0-100.0); Platelet Count 341 K/uL (130-400); RDW Standard Deviation 42.0 fL (36.4-46.3); Red Blood Count 3.76 M/uL (4.20-5.40); White Blood Count 12.41 K/ul (4.8-10.8)
[2024-11-13 07:07] LABS: Alanine Aminotransferase 15.0 U/L (7-52); Albumin Globulin Ratio 1.1 (0.9-2); Alkaline Phosphatase 104.0 U/L (34-104); Anion Gap 10.0 (3-11); Bilirubin,Total 0.6 mg/dl (0.2-1.0); Blood Urea Nitrogen 18.0 mg/dl (6-23); Calcium 8.5 mg/dl (8.6-10.3); Carbon Dioxide 24.0 mmol/L (21-32); Chloride 101.0 mmol/L (98-107); Creatinine Clr Calc Pharmacy 89.2 ml/min; Globulin 2.7 gm/dl (2.5-4.0); Glucose 101.0 mg/dl (70-99(Fasting)); Lipase 27.0 U/L (11-82); Potassium 2.7 mmol/L (3.5-5.1); Sodium 135.0 mmol/L (136-145); Total Protein 5.8 gm/dl (6.0-8.3)
[2024-11-13] MEDS: ATENOLOL 25 MG TABLET PO SCH (08:27)
[2024-11-13] MEDS: SERTRALINE HCL 100 MG TABLET PO SCH (08:27)
[2024-11-13] MEDS: LOSARTAN/HCTZ 50/12.5MG TAB PO SCH (08:28)
[2024-11-13] MEDS: FAMOTIDINE 40 MG TABLET PO SCH (08:28)
[2024-11-13] MEDS: POTASSIUM CHLORIDE / WTR 10 MEQ/100 ML PLCT IV SCH (08:51)
--- NOTE | 2024-11-13 11:34 | Hospitalist Progress Note ---
Date of Service November 13, 2024 Assessment & Plan (1) Obesity (BMI 30.0-34.9): (2) Immunosuppression due to drug therapy: (3) Chronic diarrhea: (4) Gastroenteritis: Plan 59 female GERD TIA hyperlipidemia anxiety depression Seronegative polyarthritis on immunosuppressants Obesity Insomnia depression hypertension GERD hyperlipidemia lumbar spinal stenosis Kidney stones prediabetes gallbladder removal, appendectomy, hysterectomy as well as a liver tumor removal who presents with frequent nonbloody diarrhea crampy abdominal pain nausea vomiting fevers chills for the past 5 days. Multiple episodes of diarrhea per day.Has not been able to keep any Water or food down.No known sick contacts or travel. No history of C. difficile. Patient does note a history of a right ankle surgery 8 weeks ago for which she was on antibiotics. Nausea vomiting abdominal pain diarrhea suspect gastroenteritis Supportive care IV fluids P.o. intake as tolerated Stool studies Positive for norovirus C. difficileGene positive toxin negative Radiographic pancreatitis? Lipase WNL Would benefit from repeat imaging in near future. If symptoms persist will consult GI. Hyponatremia in setting of the above improved As above and monitor Hypokalemia Replete as needed History of seronegative arthritis on immunosuppressive's Hold immunosuppressants DVT prophylaxis Full code Disposition d/c in 1-2 days Admission and Anticipated Discharge Date Admission Date: November 12, 2024 Subjective Overall feels better but tells me she is not quite ready yet to go home. Feels rundown. Tolerating liquid diet. Feels she would like to try to advance. Diarrhea seems to be improving nearly resolving. RN at bedside. We discussed C. difficile positive gene with negative toxin Still with low-grade temps Potassium repleted repeat pending this afternoon Review of Systems Review of Systems: A total of 10 systems was reviewed and is negative other than as listed in the HPI Physical Exam Constitutional: WD/WN, vitals as above Respiratory: normal respiratory effort, lungs clear to auscultation Cardiovascular: RRR, no murmur, no edema Gastrointestinal (Abdomen): soft NT Results & Data Results & Data Vital Signs (Past 12 Hours) Vital Signs Temp Pulse Resp BP Pulse Ox O2 Del Method 11/13/24 10:08 36.8 C 90 18 133/80 97 Room Air PG Care Time/CCT Total # of Minutes Spent Total Time Spent with Patient: Total time spent is greater than 50% in coordination of care (as documented) at patient's floor/unit and/or counseling patient: Coding Level of Care Code 88273 SUB INP/OBS CARE MIN Diagnoses Obesity (BMI 30.0-34.9) E66.9 Immunosuppression due to drug therapy D84.821; Z79.899 Chronic diarrhea K52.9 Gastroenteritis K52.9
[2024-11-13 14:05] LABS: Anion Gap 9.0 (3-11); Calcium 8.5 mg/dl (8.6-10.3); Carbon Dioxide 23.0 mmol/L (21-32); Chloride 101.0 mmol/L (98-107); Potassium 2.8 mmol/L (3.5-5.1); Sodium 133.0 mmol/L (136-145)
[2024-11-13 14:11] LABS: Blood Urea Nitrogen 16.0 mg/dl (6-23); Creatinine Clr Calc Pharmacy 74.0 ml/min; Glucose 111.0 mg/dl (70-99(Fasting))
[2024-11-14 11:15] LABS: Hematocrit (blood only) 31.7 % (37.0-47.0); Hemoglobin 10.5 g/dl (12.0-16.0); Mean Corpuscular Hemoglobin 28.0 pg (25.0-34.0); Mean Corpuscular Volume 84.5 fL (80.0-100.0); Platelet Count 340 K/uL (130-400); RDW Standard Deviation 43.8 fL (36.4-46.3); Red Blood Count 3.75 M/uL (4.20-5.40); White Blood Count 10.56 K/ul (4.8-10.8)
[2024-11-14 11:34] LABS: Alanine Aminotransferase 16.0 U/L (7-52); Albumin Globulin Ratio 1.1 (0.9-2); Alkaline Phosphatase 102.0 U/L (34-104); Anion Gap 7.0 (3-11); Bilirubin,Total 0.6 mg/dl (0.2-1.0); Blood Urea Nitrogen 12.0 mg/dl (6-23); Calcium 8.7 mg/dl (8.6-10.3); Carbon Dioxide 28.0 mmol/L (21-32); Chloride 100.0 mmol/L (98-107); Creatinine Clr Calc Pharmacy 94.8 ml/min; Globulin 2.7 gm/dl (2.5-4.0); Glucose 95.0 mg/dl (70-99(Fasting)); Potassium 2.5 mmol/L (3.5-5.1); Sodium 135.0 mmol/L (136-145); Total Protein 5.8 gm/dl (6.0-8.3)
--- NOTE | 2024-11-14 11:47 | Hospitalist Progress Note ---
Date of Service November 14, 2024 Assessment & Plan (1) Obesity (BMI 30.0-34.9): (2) Immunosuppression due to drug therapy: (3) Chronic diarrhea: (4) Gastroenteritis: Plan 59 female GERD TIA hyperlipidemia anxiety depression Seronegative polyarthritis on immunosuppressants Obesity Insomnia depression hypertension GERD hyperlipidemia lumbar spinal stenosis Kidney stones prediabetes gallbladder removal, appendectomy, hysterectomy as well as a liver tumor removal who presents with frequent nonbloody diarrhea crampy abdominal pain nausea vomiting fevers chills for the past 5 days. Multiple episodes of diarrhea per day.Has not been able to keep any Water or food down.No known sick contacts or travel. No history of C. difficile. Patient does note a history of a right ankle surgery 8 weeks ago for which she was on antibiotics. Nausea vomiting abdominal pain diarrhea suspect gastroenteritis Supportive care IV fluids P.o. intake as tolerated Stool studies Positive for norovirus C. difficileGene positive toxin negative Radiographic pancreatitis? Lipase WNL Would benefit from repeat imaging in near future. If symptoms persist will consult GI. Hyponatremia in setting of the above improved As above and monitor Hypokalemia Replete as needed History of seronegative arthritis on immunosuppressive's Hold immunosuppressants DVT prophylaxis Full code Disposition d/c in 1-2 days Admission and Anticipated Discharge Date Admission Date: November 12, 2024 Subjective Continues to slowly improve. Seems to be tolerating some of her diet. Con tinues to endorse nausea. Still with diarrhea. No fevers or chills. Feels less weak overall. States she is not ready to go home yet. \ Reviewed potassium 2.5 repleting. monitoring bmp around the clock until normalized RN at bedside Review of Systems Review of Systems: A total of 10 systems was reviewed and is negative other than as listed in the HPI Physical Exam Constitutional: WD/WN, vitals as above Respiratory: normal respiratory effort, lungs clear to auscultation Cardiovascular: RRR, no murmur, no edema Results & Data Results & Data Vital Signs (Past 12 Hours) Vital Signs Temp Pulse Resp BP Pulse Ox O2 Del Method 11/14/24 07:14 36.6 C 78 18 117/74 94 Room Air PG Care Time/CCT Total # of Minutes Spent Total Time Spent with Patient: Total time spent is greater than 50% in coordination of care (as documented) at patient's floor/unit and/or counseling patient: Coding Level of Care Code 22856 SUB INP/OBS CARE MIN Diagnoses Obesity (BMI 30.0-34.9) E66.9 Immunosuppression due to drug therapy D84.821; Z79.899 Chronic diarrhea K52.9 Gastroenteritis K52.9
[2024-11-14] MEDS: POTASSIUM CHLORIDE / WTR 10 MEQ/100 ML PLCT IV SCH ×2 (12:38→18:15)
[2024-11-14 13:34] LABS: Anion Gap 10.0 (3-11); Blood Urea Nitrogen 12.0 mg/dl (6-23); Calcium 8.8 mg/dl (8.6-10.3); Carbon Dioxide 26.0 mmol/L (21-32); Chloride 99.0 mmol/L (98-107); Creatinine Clr Calc Pharmacy 83.1 ml/min; Glucose 108.0 mg/dl (70-99(Fasting)); Magnesium 2.0 mg/dl (1.7-2.4); Potassium 2.8 mmol/L (3.5-5.1); Sodium 135.0 mmol/L (136-145)
[2024-11-14 16:27] LABS: Anion Gap 10.0 (3-11); Blood Urea Nitrogen 13.0 mg/dl (6-23); Calcium 8.6 mg/dl (8.6-10.3); Carbon Dioxide 26.0 mmol/L (21-32); Chloride 98.0 mmol/L (98-107); Creatinine Clr Calc Pharmacy 68.9 ml/min; Glucose 91.0 mg/dl (70-99(Fasting)); Potassium 2.7 mmol/L (3.5-5.1); Sodium 134.0 mmol/L (136-145)
[2024-11-14] MEDS ORDERED: POTASSIUM CHLORIDE CRTAB 20 MEQ TABCR PO STA (18:13)
[2024-11-14] MEDS: ONDANSETRON 4 MG OD TAB PO PRN (18:27)
[2024-11-14] MEDS: POTASSIUM CHLORIDE CRTAB 20 MEQ TABCR PO STA (18:27)
[2024-11-14 21:29] LABS: Anion Gap 11.0 (3-11); Blood Urea Nitrogen 12.0 mg/dl (6-23); Calcium 8.9 mg/dl (8.6-10.3); Carbon Dioxide 25.0 mmol/L (21-32); Chloride 99.0 mmol/L (98-107); Creatinine Clr Calc Pharmacy 74.0 ml/min; Glucose 97.0 mg/dl (70-99(Fasting)); Potassium 3.2 mmol/L (3.5-5.1); Sodium 135.0 mmol/L (136-145)
[2024-11-14] MEDS: POTASSIUM CHLORIDE CRTAB 20 MEQ TABCR PO ONE (21:41)
[2024-11-14 23:49] LABS: Anion Gap 9.0 (3-11); Blood Urea Nitrogen 11.0 mg/dl (6-23); Calcium 8.6 mg/dl (8.6-10.3); Carbon Dioxide 28.0 mmol/L (21-32); Chloride 100.0 mmol/L (98-107); Creatinine Clr Calc Pharmacy 73.1 ml/min; Glucose 98.0 mg/dl (70-99(Fasting)); Potassium 2.9 mmol/L (3.5-5.1); Sodium 137.0 mmol/L (136-145)
[2024-11-15] MEDS: POTASSIUM CHLORIDE CRTAB 20 MEQ TABCR PO STA (01:57)
[2024-11-15] MEDS: POTASSIUM CHLORIDE / WTR 10 MEQ/100 ML PLCT IV SCH ×2 (01:58→08:33)
[2024-11-15 05:11] LABS: Hematocrit (blood only) 29.6 % (37.0-47.0); Hemoglobin 9.9 g/dl (12.0-16.0); Mean Corpuscular Hemoglobin 28.3 pg (25.0-34.0); Mean Corpuscular Volume 84.6 fL (80.0-100.0); Platelet Count 394 K/uL (130-400); RDW Standard Deviation 42.7 fL (36.4-46.3); Red Blood Count 3.50 M/uL (4.20-5.40); White Blood Count 11.56 K/ul (4.8-10.8)
[2024-11-15 05:31] LABS: Alanine Aminotransferase 14.0 U/L (7-52); Albumin Globulin Ratio 0.9 (0.9-2); Alkaline Phosphatase 91.0 U/L (34-104); Anion Gap 8.0 (3-11); Bilirubin,Total 0.7 mg/dl (0.2-1.0); Blood Urea Nitrogen 10.0 mg/dl (6-23); Calcium 8.4 mg/dl (8.6-10.3); Carbon Dioxide 26.0 mmol/L (21-32); Chloride 104.0 mmol/L (98-107); Creatinine Clr Calc Pharmacy 76.8 ml/min; Globulin 2.9 gm/dl (2.5-4.0); Glucose 108.0 mg/dl (70-99(Fasting)); Magnesium 1.8 mg/dl (1.7-2.4); Potassium 3.6 mmol/L (3.5-5.1); Sodium 138.0 mmol/L (136-145); Total Protein 5.6 gm/dl (6.0-8.3)
[2024-11-15 08:06] VITALS: RESP 19
[2024-11-15 08:49] LABS: Anion Gap 6.0 (3-11); Blood Urea Nitrogen 10.0 mg/dl (6-23); Calcium 8.6 mg/dl (8.6-10.3); Carbon Dioxide 27.0 mmol/L (21-32); Chloride 105.0 mmol/L (98-107); Creatinine Clr Calc Pharmacy 85.4 ml/min; Glucose 106.0 mg/dl (70-99(Fasting)); Potassium 3.5 mmol/L (3.5-5.1); Sodium 138.0 mmol/L (136-145)
[2024-11-15 10:53] VITALS: TEMP 97.9; O2SAT 97
--- NOTE | 2024-11-15 11:37 | Hospitalist Progress Note ---
Date of Service November 15, 2024 Assessment & Plan (1) Obesity (BMI 30.0-34.9): (2) Immunosuppression due to drug therapy: (3) Chronic diarrhea: (4) Gastroenteritis: Plan 59 female GERD TIA hyperlipidemia anxiety depression Seronegative polyarthritis on immunosuppressants Obesity Insomnia depression hypertension GERD hyperlipidemia lumbar spinal stenosis Kidney stones prediabetes gallbladder removal, appendectomy, hysterectomy as well as a liver tumor removal who presents with frequent nonbloody diarrhea crampy abdominal pain nausea vomiting fevers chills for the past 5 days. Multiple episodes of diarrhea per day.Has not been able to keep any Water or food down.No known sick contacts or travel. No history of C. difficile. Patient does note a history of a right ankle surgery 8 weeks ago for which she was on antibiotics. Nausea vomiting abdominal pain diarrhea suspect gastroenteritis Supportive care IV fluids P.o. intake as tolerated Stool studies Positive for norovirus C. difficileGene positive toxin negative Radiographic pancreatitis? Lipase WNL Would benefit from repeat imaging in near future. If symptoms persist will consult GI. Hyponatremia in setting of the above improved As above and monitor Hypokalemia Replete as needed History of seronegative arthritis on immunosuppressive's Hold immunosuppressants DVT prophylaxis Full code Disposition d/c in 1-2 days Admission and Anticipated Discharge Date Admission Date: November 14, 2024 Subjective Doing very well. Eating approximately 40 to 50% of her meal. Still interm ittently nauseous. 2 episodes of diarrhea experienced diarrhea twice yesterday. At this point she feels she is ready to go home. Discussed with RN at bedside. Awaiting repeat potassium and if normal she can go home. She understands importance of close follow-up and strict return precautions and to However electrolytes were rechecked in a few days to her doctor. Review of Systems Review of Systems: A total of 10 systems was reviewed and is negative other than as listed in the HPI Physical Exam Constitutional: WD/WN, vitals as above Respiratory: normal respiratory effort, lungs clear to auscultation Cardiovascular: RRR, no murmur, no edema Results & Data Results & Data Vital Signs (Past 12 Hours) Vital Signs Temp Pulse Pulse Resp BP Pulse Ox O2 Del Method 11/15/24 10:52 36.6 C 64 19 106/71 97 Room Air 11/15/24 08:05 36.2 C L 66 19 102/65 96 Room Air 11/15/24 07:15 68 11/15/24 03:26 37.1 C 77 16 112/66 92 Room Air Laboratory Results Abnormal Labs 11/12/24 11/12/24 11/12/24 08:14 09:20 12:11 WBC 20.22 H RBC Hgb Hct Plt Count 442 H MPV 9.0 L 9.1 L Neut # (Auto) 17.13 H Lymph # (Auto) 1.13 L Noble # (Auto) 1.67 H Sodium 128 L 131 L Potassium 2.8 L 2.8 L Chloride 91 L 97 L Carbon Dioxide 19 L 20 L Anion Gap 18 H 14 H BUN 26 H BUN/Creatinine Ratio 28.3 H 25.8 H Glucose 145 H 110 H Calcium Direct Bilirubin 0.3 H Alkaline Phosphatase 129 H 137 H Total Protein Albumin Lipase 5 L Urine Appearance Cloudy A Urine Protein 2+ H Urine Ketones 1+ H Urine Blood 2+ H Urine Nitrite Positive A Ur Leukocyte Esterase 2+ H Urine WBC (Auto) >50 H Urine RBC (Auto) 3-5 H U Epithel Cells (Auto) 3-5 H Urine Bacteria (Auto) 4+ H Urine Mucus Present A Urine Yeast Present A Stl C. diff Tox B Gene Stl Norovirus GI/GII PCR 11/13/24 11/13/24 11/13/24 01:41 01:43 05:57 WBC 12.41 H RBC 3.76 L Hgb 11.0 L Hct 31.5 L Plt Count MPV 9.2 L Neut # (Auto) Lymph # (Auto) Noble # (Auto) Sodium 135 L Potassium 2.7 L Chloride Carbon Dioxide Anion Gap BUN BUN/Creatinine Ratio 26.5 H Glucose 101 H Calcium 8.5 L Direct Bilirubin Alkaline Phosphatase Total Protein 5.8 L Albumin 3.1 L Lipase Urine Appearance Urine Protein Urine Ketones Urine Blood Urine Nitrite Ur Leukocyte Esterase Urine WBC (Auto) Urine RBC (Auto) U Epithel Cells (Auto) Urine Bacteria (Auto) Urine Mucus Urine Yeast Stl C. diff Tox B Gene Positive Cdiff Gene A Stl Norovirus GI/GII PCR DETECTED A* 11/13/24 11/14/24 11/14/24 13:08 10:45 12:19 WBC RBC 3.75 L Hgb 10.5 L Hct 31.7 L Plt Count MPV 9.2 L Neut # (Auto) Lymph # (Auto) Noble # (Auto) Sodium 133 L 135 L 135 L Potassium 2.8 L 2.5 L* 2.8 L Chloride Carbon Dioxide Anion Gap BUN BUN/Creatinine Ratio Glucose 111 H 108 H Calcium 8.5 L Direct Bilirubin Alkaline Phosphatase Total Protein 5.8 L Albumin 3.1 L Lipase Urine Appearance Urine Protein Urine Ketones Urine Blood Urine Nitrite Ur Leukocyte Esterase Urine WBC (Auto) Urine RBC (Auto) U Epithel Cells (Auto) Urine Bacteria (Auto) Urine Mucus Urine Yeast Stl C. diff Tox B Gene Stl Norovirus GI/GII PCR 11/14/24 11/14/24 11/14/24 15:58 19:41 23:18 WBC RBC Hgb Hct Plt Count MPV Neut # (Auto) Lymph # (Auto) Noble # (Auto) Sodium 134 L 135 L Potassium 2.7 L 3.2 L 2.9 L Chloride Carbon Dioxide Anion Gap BUN BUN/Creatinine Ratio Glucose Calcium Direct Bilirubin Alkaline Phosphatase Total Protein Albumin Lipase Urine Appearance Urine Protein Urine Ketones Urine Blood Urine Nitrite Ur Leukocyte Esterase Urine WBC (Auto) Urine RBC (Auto) U Epithel Cells (Auto) Urine Bacteria (Auto) Urine Mucus Urine Yeast Stl C. diff Tox B Gene Stl Norovirus GI/GII PCR 11/15/24 11/15/24 04:50 07:10 WBC 11.56 H RBC 3.50 L Hgb 9.9 L Hct 29.6 L Plt Count MPV 9.1 L Neut # (Auto) Lymph # (Auto) Noble # (Auto) Sodium Potassium Chloride Carbon Dioxide Anion Gap BUN BUN/Creatinine Ratio Glucose 108 H 106 H Calcium 8.4 L Direct Bilirubin Alkaline Phosphatase Total Protein 5.6 L Albumin 2.7 L Lipase Urine Appearance Urine Protein Urine Ketones Urine Blood Urine Nitrite Ur Leukocyte Esterase Urine WBC (Auto) Urine RBC (Auto) U Epithel Cells (Auto) Urine Bacteria (Auto) Urine Mucus Urine Yeast Stl C. diff Tox B Gene Stl Norovirus GI/GII PCR PG Care Time/CCT Total # of Minutes Spent Total Time Spent with Patient: Total time spent is greater than 50% in coordination of care (as documented) at patient's floor/unit and/or counseling patient: Coding Level of Care Code 09565 SUB INP/OBS CARE 2/35MIN Diagnoses Obesity (BMI 30.0-34.9) E66.9 Immunosuppression due to drug therapy D84.821; Z79.899 Chronic diarrhea K52.9 Gastroenteritis K52.9
[2024-11-15 12:22] LABS: Anion Gap 7.0 (3-11); Blood Urea Nitrogen 10.0 mg/dl (6-23); Calcium 8.9 mg/dl (8.6-10.3); Carbon Dioxide 27.0 mmol/L (21-32); Chloride 104.0 mmol/L (98-107); Creatinine Clr Calc Pharmacy 74.0 ml/min; Glucose 112.0 mg/dl (70-99(Fasting)); Potassium 3.3 mmol/L (3.5-5.1); Sodium 138.0 mmol/L (136-145)
[2024-11-15 13:17] VITALS: BP 127/74; PULSE 80
--- NOTE | 2024-11-16 14:56 | Discharge Summary ---
Discharge Summary Date of Service November 15, 2024 Principal Dx & Hospital Course #1 = Principal Diagnosis Admission HPI Per Admitting Provider 59 female GERD TIA hyperlipidemia anxiety depression Seronegative polyarthritis on immunosuppressants Obesity Insomnia depression hypertension GERD hyperlipidemia lumbar spinal stenosis Kidney stones prediabetes gallbladder removal, appendectomy, hysterectomy as well as a liver tumor removal who presents with frequent nonbloody diarrhea crampy abdominal pain nausea vomiting fevers chills for the past 5 days. Multiple episodes of diarrhea per day.Has not been able to keep any Water or food down.No known sick contacts or travel. No history of C. difficile. Patient does note a history of a right ankle surgery 8 weeks ago for which she was on antibiotics. No lightheadedness chest pain shortness of breath or any other symptoms. We discussed abnormal urinalysis findings.No notable symptoms no hematuria hesitancy urgency or any other symptoms. She recently had mild hematuria and some urinary symptoms that was being worked up by her PCP for possibleRecurrent nephrolithiasis.At this time this is essentially resolved. Patient understands to have a low threshold to let me know if develops any urinary symptoms in which case we will initiate antibiotics. at bedside. We all discussed everything extensively they are appreciative Discussed with ED physician Who feels this is gastroenteritis. We discussed radiographic pancreatitis and normal lipase He is unimpressed with this. Discharge Exam Constitutional WD/WN, vitals as above Respiratory normal respiratory effort, lungs clear to auscultation Cardiovascular RRR, no murmur, no edema Discharge Plan Discharge Items Patient Disposition: Home - Self-Care Reason For Visit: GASTROENTERITIS Discharge Diagnosis: gastroenteritis Condition on Discharge: Fair Activity: Resume your previous activity Non-emergency contact: Primary Care Provider Call non-emergency contact if: you have any medication questions, your symptoms worsen, your pain is concerning for you and you have a fever Follow-up/Referrals: Kaiyt Scanlon MD [Primary Care Provider] - Diet: Regular Addtl Attending Provider Instructions: Follow-up with your primary care doctor within 3 to 4 days. Continue to hold your immunosuppressive medications until infection resolves. Please touch base with your primary doctor on when to restart your immunosuppressive medications! Please have your primary care doctor recheck your blood works to monitor potassium magnesium electrolytes and kidney function within 2 to 3 days. eat well rest and stay hydrated! Talk to your doctor about considering magnesium supplements such as magnesium glycinate Pending Studies at Discharge: No Stand-Alone Forms: My [facility], Smoking Cessation Medications and DC Order Prescriptions: New ondansetron 4 mg tablet,disintegrating 4 mg PO Q8H PRN (Reason: nausea and vomiting) 2 Days Qty: 10 0RF Continued sulindac 200 mg tablet 200 mg PO BID Hold Instructions: GI symptoms atenolol 25 mg tablet 25 mg PO QAM 90 Days Qty: 90 4RF losartan-hydrochlorothiazide 50-12.5 mg tablet 1 tab PO QAM Qty: 90 3RF sertraline 100 mg tablet 200 mg PO QAM Qty: 180 3RF atorvastatin 20 mg tablet 20 mg PO HS Qty: 90 3RF sumatriptan succinate [Imitrex] 100 mg tablet 100 mg PO ONCE PRN (Reason: Pain) Qty: 9 5RF Rx Instructions: TAKE 1 TABLET AT ONSET OF MIGRAINE HEADACHE. MAY REPEAT IN 2 HOURS IF NEEDED famotidine 40 mg tablet 40 mg PO DAILY Qty: 90 3RF pantoprazole [Protonix] 40 mg tablet,delayed release (DR/EC) 40 mg PO BID 28 Days Qty: 60 1RF hyoscyamine sulfate 0.125 mg tablet 0.125 mg PO BID PRN (Reason: spasms) Qty: 20 0RF Held Taltz Autoinjector 80 mg/mL auto-injector 80 mg subcut MONTHLY Hold Instructions: Resume on 11/20/24. hydroxychloroquine 200 mg tablet 400 mg PO QPM Hold Instructions: Resume on 11/20/24. leflunomide 10 mg tablet 10 mg PO DAILY Hold Instructions: Resume on 11/19/24. Discharge Orders: Discharge Order (Routine); Ordered 11/15/24 Ordered By: Maribel Butts Admission Data Admit Date/Time: 11/14/24 11:47 Attending Provider: Maribel Butts Admit Provider: Maribel Butts Primary Care Provider: Kaity Scanlon Other Interventions: Discharge Summary Assessment (RN) Last Done: 11/15/24 13:15 Hospital Stay Data Consultations 11/12/24 10:07 ED Decision to Admit Stat 11/12/24 10:23 ED Decision to Admit Stat Diagnostic Imagining Performed 11/12/24 08:42 CT abd pelvis IV con only Stat Pending Results Patient Have Any Pending Studies at Discharge: No Discharge Instructions Given to Patient (Per Discharging Provider) Follow-up with your primary care doctor within 3 to 4 days. Continue to hold your immunosuppressive medications until infection resolves. Please touch base with your primary doctor on when to restart your immunosuppressive medications! Please have your primary care doctor recheck your blood works to monitor potassium magnesium electrolytes and kidney function within 2 to 3 days. eat well rest and stay hydrated! Talk to your doctor about considering magnesium supplements such as magnesium glycinate Total Time Total Time Spent Total Time Spent (In Minutes): 30 Coding Level of Care Code 52240 INP/OBS DISCH >30 MIN
== END 2024-11-15 14:23 | disposition home or self-care (01) | DRG 392 ==
LOC: ED 07:50 → 3W 07:50 → 2S 11-14 14:41

== ENCOUNTER 2024-11-17 20:13 | Inpatient (IN) ==
--- NOTE | 2024-11-17 20:46 | Emergency Department Note ---
Impression & Plan Acute hyponatremia, Infection due to Norovirus species, Hypomagnesemia, Acute diarrhea, Acute dehydration, Hypokalemia ED Provider Note NAME: JOSÉ MIGUEL FUENTES AGE: 59 SEX: F : 1965 ARRIVES VIA: Walk-In INFORMANT: Patient, ED PROVIDER(S): Russ Hicks DO CHIEF COMPLAINT: diarrhea HPI: This is a 59-year-old female with the PMHx of HTN, HLD, GERD, LBP s/p surgery, depression/anxiety and chronic diarrhea/abdominal pain presenting to [facility] for further evaluation of abnormal outpatient labs. Patient is accompanied by her who provide additional history. they report that the patient has had ongoing diarrheal illness. Patient estimates that she is having 5-6 episodes of liquid diarrhea daily. She states that she has generalized abdominal pain. She reports no poor p.o. appetite. Patient states she was just discharged from the hospital and feels no better. She states that she had lab work that showed that her electrolytes again are causing issues. Patient states she recently tested positive for both norovirus as well as C. difficile. The patient does report a chronic infection/colonization of C. difficile. They deny fever or chills. No cough or congestion. Denies chest pain or palpitations. No shortness of breath. Patient denies recent changes in medications or OTC supplements. Patient offers no other complaints, today. ADDITIONAL HISTORY OBTAINED: Per HPI Chronic Medical/Social Conditions Affecting Care: Per HPI PAST MEDICAL HISTORY: See Below PAST SURGICAL HISTORY: See Below FAMILY HISTORY: See Below SOCIAL HISTORY: See Below HOME MEDICATIONS: See Below ALLERGIES: See Below VITALS: See Below PHYSICAL EXAMINATION: GENERAL: Sitting up in bed, alert, well appearing, well nourished, no distress, non-toxic EYE EXAM: normal conjunctiva. PERRL and EOM's grossly intact. OROPHARYNX: no exudate, no erythema, lips, buccal mucosa, and tongue normal and mucous membranes are dry NECK: supple, no nuchal rigidity, no adenopathy, non-tender LUNGS: Clear to auscultation. Normal chest wall mechanics HEART: no murmurs, regular rate, regular rhythm ABDOMEN: abdomen soft, non-tender, normo-active bowel sounds, no masses, no rebound or guarding. BACK: Back is symmetrical on inspection and there is no deformity, no midline tenderness, no CVA tenderness. SKIN: no rashes and no bruising UPPER EXTREMITIES: upper extremities are grossly normal. LOWER EXTREMITIES: No pitting edema. NEURO EXAM: Normal sensorium, GCS 15, normal speech, no gross weakness of arms, no gross weakness of legs. MEDICAL DECISION MAKING: Differential diagnoses includes but not limited to diarrheal illness, chronic abdominal pain, dehydration, electrolyte derangements, viral gastroenteritis, C. difficile infection In summary, this is a 59 year old female who presented with electrolyte derangements in the setting of a diarrheal illness. Differential as above. Nursing notes and pertinent past medical records reviewed. Vital signs reviewed and the patient is afebrile and HDS. History and presentation revealed recent admission. I reviewed the patient's documentation from prior. The patient does have significant electrolyte derangements. Looks like she has chronic colonization of C. difficile. Does have active norovirus infection. Physical examination revealed appears dry. As a result of my initial evaluation, plan to repeat labs today and begin treatment. The patient was recently admitted to the hospital for significant electrolyte derangements in the setting of a diarrheal illness. Does appear that she has a chronic/colonized C. difficile infection faction. Her stool cultures were recently positive for norovirus. Patient continues to have these electrolyte derangements and ongoing diarrhea with poor p.o. intake. The patient will require admission again but we will recheck patient's basic labs. No need for repeat imaging at this time. Diagnostics interpreted by me include EKG and cardiac monitoring as listed below: -Cardiac Monitoring: An order was placed for continuous cardiac monitoring. The monitor shows a rate of 60-80s with regular rhythm. -ECG: EKG independently interpreted by me reveals normal sinus rhythm at [address] segment changes suggest STEMI. Intervals are otherwise within normal limits. QTc is normal. Patient completed laboratory studies and imaging. Results independently interpreted by me are hypokalemia and hypomagnesemia. Patient had a total of 80 mill equivalents replaced by p.o. at her request. This was by 1 hour and space. Patient did have IV replenishment of hypomagnesemia with 2 g of magnesium sulfate. Patient still having significant diarrhea and electrolyte derangements, she requires admission to the hospital. The patient was managed with IV fluid resuscitation and electrolyte replenishment. Ultimately, the decision was made to admit the patient for severe dehydration and electrolyte derangements in the setting of a diarrheal illness. I discussed the case with the hospitalist service via telephone/[employer] and they are agreeable to admit the patient to their services. Based on the above, including the patient's age, coexisting illnesses, labs, imaging, and exam findings the decision to treat as an inpatient. I discussed the patient with the hospitalist team who recommended admission to their services. They received the medications, treatments, interventions indicated above and their condition remained stable. I discussed my findings with the patient and their family and they understand and agree with the treatment plan. All patient / family questions were answered to their satisfaction. Consults/Care Managements Discussions: Per MDM ER treatment provided: See above Procedures:none Critical Care: None The chart was completed utilizing [employer] voice recognition software. Grammatical errors, random word insertions, pronoun errors, and incomplete sentences are an occasional consequence of this system due to software limitations, ambient noise, and hardware issues. Any formal questions or concerns about the content, text, or information contained within the body of this dictation should be directly addressed to the physician for clarification. Past Med/Surg History Problem List (Updated 11/19/24 @ 22:09 by Russ Hicks DO) Hypokalemia (Acute) Acute dehydration (Acute) Acute diarrhea (Acute) Hypomagnesemia (Acute) Non-healing wound of right lower extremity C. difficile diarrhea Infection due to Norovirus species (Acute) Acute hyponatremia (Acute) Hypokalemia (Acute) Intractable abdominal pain (Acute) Acute dehydration (Acute) Gastroenteritis Medical marijuana use Obesity (BMI 30.0-34.9) Immunosuppression due to drug therapy Lumbar spondylosis Chronic diarrhea Seronegative polyarthritis HLA B 27 positive, [facility] Trochanteric bursitis of both hips Insomnia Depression Vitamin D deficiency (Chronic) Thrombocytosis (Chronic ~09/2013) Chronic since ~ 2005 S/P cholecystectomy (Chronic) Facet arthropathy, lumbosacral Lumbar spinal stenosis moderate to severe at L4-L5 Hypertension (Chronic) GERD (gastroesophageal reflux disease) (Chronic) Hyperlipidemia (Chronic) TIA (transient ischemic attack) (Chronic) PER RECORDS, SEEN AT [facility] in 2016 FOR ACUTE UE NUMBNESS/PARESTHESIAS. BRAIN IMAGING AND CAROTID US WNL, no further issues Anxiety Medical History Kidney stones Thrombocytosis Arthritis Prediabetes History of COVID-19 Pneumonia Hiatal hernia Depression Migraine Surgical History History of cystoscopy Hx of lymph node excision Hx of foot surgery History of liver biopsy History of dilatation and curettage History of section History of bilateral tubal ligation History of hysterectomy History of carpal tunnel release History of repair of ACL History of lithotripsy History of esophagogastroduodenoscopy (EGD) History of colonoscopy History of appendectomy History of cholecystectomy History of tonsillectomy Family History Other No known health problems Denies family history of Ovarian cancer Prostate cancer Myocardial infarction Breast cancer Colorectal cancer Social History Smoking Status: Never smoker Second Hand Exposure: No; Do You Dip or Chew Tobacco: No; Hx Alcohol Use: No Hx Substance Use: No Preferred Language: Uzbek Communication Ability: Effective Visual Impairment: No Limitations Forestry Fire Aide Required: No Beliefs That Will Affect Care: None marital status: Current Living Situation: Spouse current occupational status: employed and retired current occupation: [employer]KS [employer] Feels Safe at Home: Yes Diet: regular caffeine: Yes Dental Care, Regularly: Yes Physical Activity Frequency: Daily Seatbelt Use: always Sunscreen Use: Yes Assistive Devices: Crutches and Scooter/Electric Scooter Allergies Allergies Allergy/AdvReac Type Severity Reaction Status Date / Time Sulfa (Sulfonamide Allergy Intermediate RASH Verified 11/12/24 09:51 Antibiotics) metformin AdvReac Mild Abdominal Verified 11/12/24 09:51 Pain Home Meds Home Medications Medication Instructions Recorded Confirmed hydroxychloroquine 200 mg tablet 400 mg PO QPM 06/11/18 11/17/24 ixekizumab 80 mg/mL subcutaneous 80 mg subcut MONTHLY 02/13/22 11/17/24 auto-injector ([employer] Autoinjector) sulindac 200 mg tablet 200 mg PO BID 04/30/23 11/17/24 leflunomide 10 mg tablet 10 mg PO DAILY 11/12/24 11/17/24 bupropion HCl 150 mg 24 hr tablet, 150 mg PO QAM 11/17/24 11/17/24 extended release famotidine 40 mg tablet 40 mg PO HS 11/17/24 11/17/24 gabapentin 600 mg tablet 600 mg PO UD 11/17/24 11/17/24 Previous Rx's Medication Instructions Recorded atenolol 25 mg tablet 25 mg PO QAM 90 days #90 tabs 11/12/23 losartan 50 mg-hydrochlorothiazide 1 tab PO QAM #90 tabs 06/21/24 12.5 mg tablet sertraline 100 mg tablet 200 mg (2 x 100 mg) PO QAM #180 06/27/24 tabs atorvastatin 20 mg tablet 20 mg PO HS #90 tabs 07/28/24 sumatriptan succinate 100 mg 100 mg PO ONCE PRN Pain #9 tabs 09/14/24 tablet (Imitrex) pantoprazole 40 mg tablet,delayed 40 mg PO BID 4 weeks #60 tabs 10/24/24 release (Protonix) hyoscyamine sulfate 0.125 mg tablet 0.125 mg PO BID PRN spasms #20 tabs 10/26/24 ondansetron HCl 8 mg tablet 8 mg PO Q8H PRN nausea and 11/17/24 vomiting 5 days #30 tabs potassium chloride 20 mEq 20 meq PO BID #20 tabs 11/17/24 tablet,extended release Results & Data (ED) Vital Signs Vital Signs - 24 hr 11/17/24 20:16 11/17/24 20:34 11/17/24 20:34 Temperature 36.7 C Temperature Source Temporal Artery Scan Pulse Rate 80 Pulse Rate from SpO2 Sensor Pulse Rhythm Regular Pulse Strength Normal Respiratory Rate 18 Respiratory Effort / Characteristics Non-Labored Spontaneous Respiratory Depth Normal Respiratory Pattern Regular Blood Pressure 119/62 Blood Pressure Mean 81 Blood Pressure Position Sitting Pulse Oximetry 95 95 95 Oxygen Delivery Method Room Air Room Air Room Air Sepsis Recent Fever Within 48 Hours No Sepsis New/Unexplained Change in Mental Status N/A Sepsis Action Taken by Nursing No Action Required 11/17/24 20:45 11/17/24 21:09 11/17/24 21:30 Temperature Temperature Source Pulse Rate 69 65 72 Pulse Rate from SpO2 Sensor 68 65 Pulse Rhythm Pulse Strength Respiratory Rate 15 13 18 Respiratory Effort / Characteristics Respiratory Depth Respiratory Pattern Blood Pressure 111/66 126/85 Blood Pressure Mean 81 96 Blood Pressure Position Pulse Oximetry 94 95 95 Oxygen Delivery Method Room Air Room Air Room Air Sepsis Recent Fever Within 48 Hours Sepsis New/Unexplained Change in Mental Status Sepsis Action Taken by Nursing 11/17/24 21:34 11/17/24 22:03 Temperature Temperature Source Pulse Rate 71 78 Pulse Rate from SpO2 Sensor 79 Pulse Rhythm Pulse Strength Respiratory Rate 16 Respiratory Effort / Characteristics Respiratory Depth Respiratory Pattern Blood Pressure 132/60 Blood Pressure Mean 84 Blood Pressure Position Pulse Oximetry 95 Oxygen Delivery Method Room Air Sepsis Recent Fever Within 48 Hours Sepsis New/Unexplained Change in Mental Status Sepsis Action Taken by Nursing Laboratory Data 11/19/24 05:57 11/19/24 05:57 Lab Results 11/17/24 Range/Units 20:28 WBC 12.84 H (4.8-10.8) K/ul RBC 3.69 L (4.20-5.40) M/uL Hgb 10.6 L (12.0-16.0) g/dl Hct 30.6 L (37.0-47.0) % MCV 82.9 (80.0-100.0) fL MCH 28.7 (25.0-34.0) pg MCHC 34.6 (32.0-36.0) g/dL RDW Std Deviation 41.9 (36.4-46.3) fL RDW Coeff of Alesia 13.8 (11.5-14.5) % Plt Count 568 H (130-400) K/uL MPV 9.3 L (9.4-12.4) fL Immature Gran % (Auto) 0.9 % Neut % (Auto) 71.6 % Lymph % (Auto) 14.3 % [place] % (Auto) 12.1 % Eos % (Auto) 0.9 % Baso % (Auto) 0.2 % Neut # (Auto) 9.18 H (1.40-6.50) K/uL Lymph # (Auto) 1.84 (1.20-3.40) K/uL [place] # (Auto) 1.56 H (0.11-0.59) K/uL Eos # (Auto) 0.12 (0.00-0.50) K/uL Baso # (Auto) 0.03 (0.00-0.20) K/uL Immature Gran # (Auto) 0.11 (0.01-0.20) K/uL PT 13.2 H (9.0-12.0) Seconds INR 1.2 H (0.9-1.1) APTT 32 H (21-31) Seconds PTT Ratio 1.2 Sodium 135 L (136-145) mmol/L Potassium 2.3 L* (3.5-5.1) mmol/L Chloride 96 L (98-107) mmol/L Carbon Dioxide 28 (21-32) mmol/L Anion Gap 11 (3-11) BUN 9 (6-23) mg/dl Creatinine 0.84 (0.6-1.2) mg/dl Est Cr Clr Drug Dosing 71.5 ml/min eGFR 79.01 BUN/Creatinine Ratio 10.7 (10-20) Glucose 103 H (70-99(Fasting)) mg/dl Calcium 8.5 L (8.6-10.3) mg/dl Magnesium 1.5 L (1.7-2.4) mg/dl Total Bilirubin 0.6 (0.2-1.0) mg/dl AST 22 (13-39) U/L ALT 19 (7-52) U/L Alkaline Phosphatase 86 (34-104) U/L Troponin I High Sens 17.3 H (0-14) pg/ml Total Protein 6.3 (6.0-8.3) gm/dl Albumin 3.0 L (3.4-5.0) gm/dl Globulin 3.3 (2.5-4.0) gm/dl Albumin/Globulin Ratio 0.9 (0.9-2) Administered Medications Atenolol (Atenolol 25 Mg Tablet) 25 mg PO QAM [facility] Stop: 12/18/24 08:59 Last Admin: 11/19/24 09:35 Dose: 25 mg Documented By: Admin: 11/18/24 08:30 Dose: 25 mg Documented By: JACQUES Ann Syrup (Ann Syrup 5 Ml Udp) 5 ml PO Q6H [facility] Stop: 11/28/24 17:59 Last Admin: 11/19/24 17:52 Dose: 5 ml Documented By: Admin: 11/19/24 12:05 Dose: 5 ml Documented By: Admin: 11/19/24 06:12 Dose: 5 ml Documented By: Admin: 11/19/24 00:00 Dose: 5 ml Documented By: Admin: 11/18/24 18:27 Dose: 5 ml Documented By: DAVID Colestipol HCl (Colestipol Hcl 1 Gm Tab) 1 gm PO DAILY [facility] Stop: 12/18/24 14:44 Last Admin: 11/19/24 09:33 Dose: 1 gm Documented By: Admin: 11/18/24 14:58 Dose: 1 gm Documented By: DAVID Enoxaparin Sodium (Enoxaparin Inj 40 Mg/0.4 Ml Syr) 40 mg SQ Q24H ALEC Stop: 12/18/24 08:59 Last Admin: 11/19/24 09:36 Dose: 40 mg Documented By: Admin: 11/18/24 08:31 Dose: 40 mg Documented By: JACQUES Famotidine (Famotidine 40 Mg Tablet) 40 mg PO DAILY [facility]C Stop: 12/18/24 08:59 Last Admin: 11/19/24 09:33 Dose: 40 mg Documented By: Admin: 11/18/24 08:31 Dose: 40 mg Documented By: JACQUES Potassium Chloride 40 meq/ (Sodium Chloride) 1,020 mls @ 100 mls/hr IV .[id number] ALEC Stop: 11/21/24 01:29 Last Admin: 11/19/24 19:58 Dose: 100 mls/hr Documented By: Infusion: 11/19/24 19:58 Dose: Infused Documented By: Admin: 11/19/24 10:40 Dose: 100 mls/hr Documented By: Infusion: 11/19/24 10:13 Dose: Infused Documented By: Admin: 11/19/24 00:01 Dose: 100 mls/hr Documented By: Infusion: 11/19/24 00:01 Dose: Infused Documented By: Admin: 11/18/24 14:11 Dose: 100 mls/hr Documented By: Infusion: 11/18/24 13:03 Dose: Infused Documented By: Admin: 11/18/24 02:51 Dose: 100 mls/hr Documented By: DAYNA Leflunomide (Leflunomide 10 Mg Tab) 10 mg PO DAILY ALEC Stop: 12/18/24 08:59 Last Admin: 11/18/24 08:32 Dose: Not Given Documented By: JACQUES Morphine Sulfate (Morphine Sulfate 2 Mg/Ml Carp) 1 mg IV Q4 PRN PRN Reason: Pain Stop: 12/01/24 23:33 Last Admin: 11/19/24 20:07 Dose: 1 mg Documented By: Admin: 11/19/24 09:44 Dose: 1 mg Documented By: Admin: 11/18/24 17:35 Dose: 1 mg Documented By: Admin: 11/18/24 00:03 Dose: 1 mg Documented By: IZA Ondansetron HCl (Ondansetron Inj 2 Mg/Ml 2 Ml Vial) 4 mg IV Q6H PRN PRN Reason: Nausea Stop: 12/18/24 00:53 Last Admin: 11/19/24 17:51 Dose: 4 mg Documented By: Admin: 11/19/24 12:04 Dose: 4 mg Documented By: Admin: 11/19/24 03:58 Dose: 4 mg Documented By: Admin: 11/18/24 20:43 Dose: 4 mg Documented By: Admin: 11/18/24 14:13 Dose: 4 mg Documented By: Admin: 11/18/24 08:27 Dose: 4 mg Documented By: JACQUES Pantoprazole Sodium (Pantoprazole 40 Mg Tab) 40 mg PO BID ALEC Stop: 12/18/24 00:53 Last Admin: 11/19/24 19:59 Dose: 40 mg Documented By: Admin: 11/19/24 09:33 Dose: 40 mg Documented By: Admin: 11/18/24 20:44 Dose: 40 mg Documented By: Admin: 11/18/24 08:32 Dose: 40 mg Documented By: Admin: 11/18/24 02:22 Dose: 40 mg Documented By: DAYNA Potassium Chloride (Potassium Chloride Crtab 20 Meq Tabcr) 20 meq PO BID ALEC Stop: 12/18/24 00:53 Last Admin: 11/18/24 02:22 Dose: 20 meq Documented By: DAYNA Sertraline HCl (Sertraline Hcl 100 Mg Tablet) 200 mg PO QAM [facility] Stop: 12/18/24 08:59 Last Admin: 11/19/24 09:35 Dose: 200 mg Documented By: Admin: 11/18/24 08:33 Dose: 200 mg Documented By: JACQUES Sulindac (Sulindac 200 Mg Tab) 200 mg PO BID ALEC Stop: 12/18/24 08:59 Last Admin: 11/19/24 20:00 Dose: 200 mg Documented By: Admin: 11/19/24 09:34 Dose: 200 mg Documented By: Admin: 11/18/24 20:45 Dose: 200 mg Documented By: Admin: 11/18/24 08:34 Dose: Not Given Documented By: JACQUES Vancomycin HCl (Vancomycin Hcl 125 Mg/2.5ml Soln) 125 mg PO Q6H ALEC Stop: 11/28/24 17:59 Last Admin: 11/19/24 17:51 Dose: 125 mg Documented By: Admin: 11/19/24 12:04 Dose: 125 mg Documented By: Admin: 11/19/24 06:13 Dose: 125 mg Documented By: Admin: 11/19/24 00:00 Dose: 125 mg Documented By: Admin: 11/18/24 18:27 Dose: 125 mg Documented By: DAVID Discontinued Medications Magnesium Sulfate/Dextrose (Magnesium Sulfate / D5w) 1 gm in 100 mls @ 100 mls/hr IV Q1H ALEC Stop: 11/17/24 23:26 Last Infusion: 11/18/24 00:17 Dose: Infused Documented By: Admin: 11/17/24 22:58 Dose: 100 mls/hr Documented By: Infusion: 11/17/24 22:57 Dose: Infused Documented By: Admin: 11/17/24 21:57 Dose: 100 mls/hr Documented By: MADY Potassium Chloride (K Jeremías / Wtr) 10 meq in 100 mls @ 50 mls/hr IV Q1H ALEC Stop: 11/18/24 06:59 Last Admin: 11/18/24 08:50 Dose: Not Given Documented By: Admin: 11/18/24 08:47 Dose: Not Given Documented By: Infusion: 11/18/24 08:26 Dose: Infused Documented By: Admin: 11/18/24 06:11 Dose: 50 mls/hr Documented By: Infusion: 11/18/24 06:06 Dose: Infused Documented By: Admin: 11/18/24 03:59 Dose: 50 mls/hr Documented By: DAYNA Potassium Chloride (Potassium Chloride Crtab 20 Meq Tabcr) 40 meq PO NOW STA Stop: 11/17/24 20:47 Last Admin: 11/17/24 21:11 Dose: 40 meq Documented By: MADY Potassium Chloride (Potassium Chloride Crtab 20 Meq Tabcr) 40 meq PO NOW STA Stop: 11/17/24 21:28 Last Admin: 11/17/24 21:55 Dose: 40 meq Documented By: MADY Potassium Chloride (Potassium Chloride Crtab 20 Meq Tabcr) 40 meq PO NOW STA Stop: 11/18/24 05:21 Last Admin: 11/18/24 06:02 Dose: 40 meq Documented By: LAF Imaging Data Radiologist's Impression: Chest X-Ray 11/17/24 20:26 Exam(s): XR CXR 1 VIEW EXAM: XR Chest, 1 View CLINICAL HISTORY: Reason for exam: Chest pain, nonspecific. TECHNIQUE: Frontal view of the chest. COMPARISON: Chest x-ray from 09/29/2023 FINDINGS: Lungs: There are several scattered thin linear densities projecting of the lung bases consistent with subsegmental atelectasis, slightly changed in configuration since previous. No significant focal consolidation is seen. Pleural space: Unremarkable. No pneumothorax. Heart: Unremarkable. No cardiomegaly. Mediastinum: Unremarkable. Normal mediastinal contour. Bones/joints: Unremarkable. No acute fracture. Upper abdomen: 3 cm elevation of the right diaphragm, unchanged. No pneumoperitoneum under the diaphragm. IMPRESSION: There are several scattered thin linear densities projecting of the lung bases consistent with subsegmental atelectasis, slightly changed in configuration since previous. No significant focal consolidation is seen. Electronically signed by: Mehul Gómez MD 11/17/24 22:55 PM Discharge Plan Visit Data Chief Complaint: Referred by Doctor Stated Complaint: LOW POTASSIUM ED Provider: Russ Hicks Discharge Problem: Acute hyponatremia, Infection due to Norovirus species, Hypomagnesemia, Acute diarrhea, Acute dehydration, Hypokalemia Patient Disposition: Admitted As Inpatient Condition: Fair Discharge Instructions Interventions: ED Discharge Assessment Last Done: 11/18/24 00:55
[2024-11-17] MEDS: POTASSIUM CHLORIDE CRTAB 20 MEQ TABCR PO STA ×2 (21:11→21:55)
[2024-11-17 21:12] LABS: Alanine Aminotransferase 19.0 U/L (7-52); Albumin Globulin Ratio 0.9 (0.9-2); Alkaline Phosphatase 86.0 U/L (34-104); Anion Gap 11.0 (3-11); Bilirubin,Total 0.6 mg/dl (0.2-1.0); Blood Urea Nitrogen 9.0 mg/dl (6-23); Calcium 8.5 mg/dl (8.6-10.3); Carbon Dioxide 28.0 mmol/L (21-32); Chloride 96.0 mmol/L (98-107); Creatinine Clr Calc Pharmacy 71.5 ml/min; Globulin 3.3 gm/dl (2.5-4.0); Glucose 103.0 mg/dl (70-99(Fasting)); Potassium 2.3 mmol/L (3.5-5.1); Sodium 135.0 mmol/L (136-145); Total Protein 6.3 gm/dl (6.0-8.3)
[2024-11-17 21:15] LABS: Magnesium 1.5 mg/dl (1.7-2.4)
[2024-11-17 21:16] LABS: INR 1.2 (0.9-1.1); Partial Thromboplastin Time 32 Seconds (21-31); Prothrombin Time 13.2 Seconds (9.0-12.0)
[2024-11-17 21:34] LABS: Hematocrit (blood only) 30.6 % (37.0-47.0); Hemoglobin 10.6 g/dl (12.0-16.0); Immature Granulocytes # (auto) 0.11 K/uL (0.01-0.20); Immature Granulocytes % (auto) 0.9 %; Mean Corpuscular Hemoglobin 28.7 pg (25.0-34.0); Mean Corpuscular Volume 82.9 fL (80.0-100.0); Platelet Count 568 K/uL (130-400); RDW Standard Deviation 41.9 fL (36.4-46.3); Red Blood Count 3.69 M/uL (4.20-5.40); White Blood Count 12.84 K/ul (4.8-10.8)
[2024-11-17] MEDS: MAGNESIUM SULFATE / D5W 1 GM/100 ML BAG IV SCH (21:57)
--- NOTE | 2024-11-17 22:57 | XRay Report ---
Exam(s): XR CXR 1 VIEW EXAM: XR Chest, 1 View CLINICAL HISTORY: Reason for exam: Chest pain, nonspecific. TECHNIQUE: Frontal view of the chest. COMPARISON: Chest x-ray from 09/29/2023 FINDINGS: Lungs: There are several scattered thin linear densities projecting of the lung bases consistent with subsegmental atelectasis, slightly changed in configuration since previous. No significant focal consolidation is seen. Pleural space: Unremarkable. No pneumothorax. Heart: Unremarkable. No cardiomegaly. Mediastinum: Unremarkable. Normal mediastinal contour. Bones/joints: Unremarkable. No acute fracture. Upper abdomen: 3 cm elevation of the right diaphragm, unchanged. No pneumoperitoneum under the diaphragm. IMPRESSION: There are several scattered thin linear densities projecting of the lung bases consistent with subsegmental atelectasis, slightly changed in configuration since previous. No significant focal consolidation is seen. Electronically signed by: Mehul Gómez MD 11/17/24 22:55 PM
--- NOTE | 2024-11-17 23:53 | History & Physical Report ---
Date of Service November 17, 2024 Assessment & Plan (1) Hypokalemia: (2) Acute dehydration: (3) Gastroenteritis: (4) Immunosuppression due to drug therapy: (5) Hypertension: Plan This is a 59 year old female with a PMH of chronic C diff infection, recent viral gastroenteritis, polyarthritis on immunosuppression, HTN, GERD, HLD, hx of TIA, chronic pain - coming in with significant diarrhea Severe Hypokalemia - potassium on arrival 2.3 - potassium supplemented via IV and PO - cont fluids with potassium - monitor on tele Hypomagnesemia - IV Mag given - check phos Chronic Pain - patient c/o pain all over - wants IV narcotics; IV morphine 1mg q4PRN ordered for now; though would benefit from pain management consult Polyarthritis - cont home immunosuppressive drugs History of Present Illness Chief Complaint: Diarrhea Primary Care Provider: Kaity Scanlon MD This is a 59 year old female with a PMH of chronic C diff infection, recent viral gastroenteritis, polyarthritis on immunosuppression, HTN, GERD, HLD, hx of TIA, chronic pain - coming in with significant diarrhea. On arrival here, she had low potassium and low magnesium. She has been seen multiple times for diarrhea; not on abx as she is likely a chronic carrier of C diff. Recently she was diagnosed with norovirus gastroenteritis. States she has chest pain. EKG done with no ST-T wave changes. Allergies Allergy/AdvReac Type Severity Reaction Status Date / Time Sulfa (Sulfonamide Allergy Intermediate RASH Verified 11/12/24 09:51 Antibiotics) metformin AdvReac Mild Abdominal Verified 11/12/24 09:51 Pain Home Medications Medication Instructions Recorded Confirmed Type hydroxychloroquine 200 mg tablet 400 mg PO QPM 06/11/18 11/17/24 History ixekizumab 80 mg/mL subcutaneous 80 mg subcut MONTHLY 02/13/22 11/17/24 History auto-injector (Taltz Autoinjector) sulindac 200 mg tablet 200 mg PO BID 04/30/23 11/17/24 History atenolol 25 mg tablet 25 mg PO QAM 90 days #90 tabs 11/12/23 11/17/24 Rx losartan 50 mg-hydrochlorothiazide 1 tab PO QAM #90 tabs 06/21/24 11/17/24 Rx 12.5 mg tablet sertraline 100 mg tablet 200 mg (2 x 100 mg) PO QAM #180 06/27/24 11/17/24 Rx tabs atorvastatin 20 mg tablet 20 mg PO HS #90 tabs 07/28/24 11/17/24 Rx sumatriptan succinate 100 mg 100 mg PO ONCE PRN Pain #9 tabs 09/14/24 11/17/24 Rx tablet (Imitrex) pantoprazole 40 mg tablet,delayed 40 mg PO BID 4 weeks #60 tabs 10/24/24 11/17/24 Rx release (Protonix) hyoscyamine sulfate 0.125 mg tablet 0.125 mg PO BID PRN spasms #20 tabs 10/26/24 11/17/24 Rx leflunomide 10 mg tablet 10 mg PO DAILY 11/12/24 11/17/24 History bupropion HCl 150 mg 24 hr tablet, 150 mg PO QAM 11/17/24 11/17/24 History extended release famotidine 40 mg tablet 40 mg PO HS 11/17/24 11/17/24 History gabapentin 600 mg tablet 600 mg PO UD 11/17/24 11/17/24 History ondansetron HCl 8 mg tablet 8 mg PO Q8H PRN nausea and 11/17/24 11/17/24 Rx vomiting 5 days #30 tabs potassium chloride 20 mEq 20 meq PO BID #20 tabs 11/17/24 11/17/24 Rx tablet,extended release Past Med/Surg History Problem List (Updated 11/13/24 @ 06:42 by Paulino Harper MD) Acute hyponatremia (Acute) Hypokalemia (Acute) Intractable abdominal pain (Acute) Acute dehydration (Acute) Gastroenteritis Medical marijuana use Obesity (BMI 30.0-34.9) Immunosuppression due to drug therapy Lumbar spondylosis Chronic diarrhea Seronegative polyarthritis HLA B 27 positive, follows with [facility] Trochanteric bursitis of both hips Insomnia Depression Vitamin D deficiency (Chronic) Thrombocytosis (Chronic ~09/2013) Chronic since ~ 2005 S/P cholecystectomy (Chronic) Facet arthropathy, lumbosacral Lumbar spinal stenosis moderate to severe at L4-L5 Hypertension (Chronic) GERD (gastroesophageal reflux disease) (Chronic) Hyperlipidemia (Chronic) TIA (transient ischemic attack) (Chronic) PER RECORDS, SEEN AT [facility] in 2016 FOR ACUTE UE NUMBNESS/PARESTHESIAS. BRAIN IMAGING AND CAROTID US WNL, no further issues Anxiety Medical History Kidney stones Thrombocytosis Arthritis Prediabetes History of COVID-19 Pneumonia Hiatal hernia Depression Migraine Surgical History History of cystoscopy Hx of lymph node excision Hx of foot surgery History of liver biopsy History of dilatation and curettage History of section History of bilateral tubal ligation History of hysterectomy History of carpal tunnel release History of repair of ACL History of lithotripsy History of esophagogastroduodenoscopy (EGD) History of colonoscopy History of appendectomy History of cholecystectomy History of tonsillectomy Family History Other No known health problems Denies family history of Ovarian cancer Prostate cancer Myocardial infarction Breast cancer Colorectal cancer Social History Smoking Status: Never smoker Second Hand Exposure: No; Do You Dip or Chew Tobacco: No; Hx Alcohol Use: No Hx Substance Use: No Preferred Language: [place] Citizen Communication Ability: Effective Visual Impairment: No Limitations Director Of Front Office Required: No Beliefs That Will Affect Care: None marital status: Current Living Situation: Spouse current occupational status: employed and retired current occupation: [employer] Feels Safe at Home: Yes Diet: regular caffeine: Yes Dental Care, Regularly: Yes Physical Activity Frequency: Daily Seatbelt Use: always Sunscreen Use: Yes Assistive Devices: None Review of Systems Review of Systems: Constitutional: No Weight Change, No Fever, No Chills, No Night Sweats, No Fatigue, No Malaise ENT/Mouth: No Hearing Changes, No Ear Pain, No Nasal Congestion, No Sinus Pain, No Hoarseness, No sore throat, No Rhinorrhea, No Swallowing Difficulty Eyes: No Eye Pain, No Swelling, No Redness, No Foreign Body, No Discharge, No Vision Changes Cardiovascular: No Chest Pain, No SOB, No PND, No Dyspnea on Exertion, No Orthopnea, No Claudication, No Edema, No Palpitations Respiratory: No Cough, No Sputum, No Wheezing, No Smoke Exposure, No Dyspnea Gastrointestinal: No Nausea, No Vomiting, No Diarrhea, No Constipation, No Pain, No Heartburn, No Anorexia, No Dysphagia, No Hematochezia, No Melena, No Flatulence, No Jaundice Genitourinary: No Dysmenorrhea, No DUB, No Dyspareunia, No Dysuria, No Urinary Frequency, No Hematuria, No Urinary Incontinence, No Urgency, No Flank Pain, No Urinary Flow Changes, No Hesitancy Musculoskeletal: No Arthralgias, No Myalgias, No Joint Swelling, No Joint Stiffness, No Back Pain, No Neck Pain, No Injury History Skin: No Skin Lesions, No Pruritis, No Hair Changes, No Breast/Skin Changes, No Nipple Discharge Neuro: No Weakness, No Numbness, No Paresthesias, No Loss of Consciousness, No Syncope, No Dizziness, No Headache, No Coordination Changes, No Recent Falls Psych: No Anxiety/Panic, No Depression, No Insomnia, No Personality Changes, No Delusions, No Rumination, No SI/HI/AH/VH, No Social Issues, No Memory Changes, No Violence/Abuse Hx., No Eating Concerns Heme/Lymph: No Bruising, No Bleeding, No Transfusions History, No Lymphadenopathy Endocrine: No Polyuria, No Polydipsia, No Temperature Intolerance Physical Exam Physical Exam: VITALS: Reviewed. WEIGHT/BMI reviewed. GEN: Healthy appearing, well-developed, NAD. PSYCH: Good Judgment. AOx3. Normal memory, mood, and affect. HEENT -Head: NC/AT; -Eyes: PERRL, EOMI. No discharge or redn ess; -Ears: External ears are normal. Normal TMs. -Nose: Normal nares. -Mouth and throat: MMM. Normal gums, muc vikki, palate,. Good dentition. NECK: Supple, with no masses. CV: RRR, no m/r/g. LUNGS: CTAB, no w/r/c. ABD: Soft, NT/ND, NBS, no masses or organomegaly. : N/A SKIN: Warm, well perfused. No skin rashes or abnormal lesions. MSK: No deformities, Normal gait. EXT: No clubbing, cyanosis, or edema. NEURO: Ambulating with no limitations. Normal muscle strength and tone. No focal deficits. Results & Data Results & Data Vital Signs (Past 12 Hours) Vital Signs Temp Pulse Resp BP Pulse Ox O2 Del Method 11/17/24 23:00 73 20 115/59 L 93 Room Air 11/17/24 22:30 70 12 114/65 95 Room Air 11/17/24 22:03 78 16 132/60 95 Room Air 11/17/24 21:34 71 11/17/24 21:30 72 18 126/85 95 Room Air 11/17/24 21:09 65 13 111/66 95 Room Air 11/17/24 20:45 69 15 94 Room Air 11/17/24 20:34 95 Room Air 11/17/24 20:34 95 Room Air 11/17/24 20:16 36.7 C 80 18 119/62 95 Room Air Code Status & VTE Plan VTE Prophylaxis Plan VTE Prophylaxis will be ordered: Yes PG Care Time/CCT Total # of Minutes Spent Total Time Spent with Patient: Total time spent is greater than 50% in coordination of care (as documented) at patient's floor/unit and/or counseling patient: Coding Level of Care Code 05650 INT INP/OBS CARE 3/75MIN Diagnoses Hypokalemia E87.6 Acute dehydration E86.0 Gastroenteritis K52.9 Immunosuppression due to drug therapy D84.821; Z79.899 Hypertension I10
[2024-11-18] MEDS: MoRPHine SULFATE 2 MG/ML CARP IV PRN (00:03)
[2024-11-18] MEDS ORDERED: HYOSCYAMINE SULFATE 0.125 MG TAB PO PRN (00:54)
[2024-11-18] MEDS ORDERED: ACETAMINOPHEN 325 MG TAB PO PRN (00:54)
[2024-11-18] MEDS ORDERED: MELATONIN 3 MG TAB PO PRN (00:54)
[2024-11-18] MEDS: POTASSIUM CHLORIDE CRTAB 20 MEQ TABCR PO SCH (02:22)
[2024-11-18 02:37] LABS: Hematocrit (blood only) 28.7 % (37.0-47.0); Hemoglobin 9.7 g/dl (12.0-16.0); Immature Granulocytes # (auto) 0.12 K/uL (0.01-0.20); Immature Granulocytes % (auto) 1.0 %; Mean Corpuscular Hemoglobin 28.2 pg (25.0-34.0); Mean Corpuscular Volume 83.4 fL (80.0-100.0); Platelet Count 501 K/uL (130-400); RDW Standard Deviation 42.9 fL (36.4-46.3); Red Blood Count 3.44 M/uL (4.20-5.40); White Blood Count 11.70 K/ul (4.8-10.8)
[2024-11-18] MEDS: POTASSIUM CHLORIDE 40 MEQ in SODIUM CHLORIDE 0.9% 1,000 ML IV SCH (02:51)
[2024-11-18 02:59] LABS: Alanine Aminotransferase 17.0 U/L (7-52); Albumin Globulin Ratio 1.0 (0.9-2); Alkaline Phosphatase 79.0 U/L (34-104); Anion Gap 11.0 (3-11); Bilirubin,Total 0.5 mg/dl (0.2-1.0); Blood Urea Nitrogen 8.0 mg/dl (6-23); Calcium 8.2 mg/dl (8.6-10.3); Carbon Dioxide 28.0 mmol/L (21-32); Chloride 97.0 mmol/L (98-107); Creatinine Clr Calc Pharmacy 72.3 ml/min; Globulin 2.9 gm/dl (2.5-4.0); Glucose 96.0 mg/dl (70-99(Fasting)); Magnesium 2.2 mg/dl (1.7-2.4); Potassium 2.5 mmol/L (3.5-5.1); Sodium 136.0 mmol/L (136-145); Total Protein 5.9 gm/dl (6.0-8.3)
[2024-11-18] MEDS: POTASSIUM CHLORIDE / WTR 10 MEQ/100 ML PLCT IV SCH (03:59)
[2024-11-18] MEDS: POTASSIUM CHLORIDE CRTAB 20 MEQ TABCR PO STA (06:02)
[2024-11-18 08:09] LABS: Hematocrit (blood only) 28.9 % (37.0-47.0); Hemoglobin 9.8 g/dl (12.0-16.0); Immature Granulocytes # (auto) 0.09 K/uL (0.01-0.20); Immature Granulocytes % (auto) 0.8 %; Mean Corpuscular Hemoglobin 28.3 pg (25.0-34.0); Mean Corpuscular Volume 83.5 fL (80.0-100.0); Platelet Count 533 K/uL (130-400); RDW Standard Deviation 43.1 fL (36.4-46.3); Red Blood Count 3.46 M/uL (4.20-5.40); White Blood Count 11.22 K/ul (4.8-10.8)
[2024-11-18] MEDS: ONDANSETRON INJ 2 MG/ML 2 ML VIAL IV PRN (08:27)
[2024-11-18] MEDS: ATENOLOL 25 MG TABLET PO SCH (08:30)
[2024-11-18] MEDS: FAMOTIDINE 40 MG TABLET PO SCH (08:31)
[2024-11-18] MEDS: ENOXAPARIN INJ 40 MG/0.4 ML SYR SQ SCH (08:31)
[2024-11-18] MEDS: LEFLUNOMIDE 10 MG TAB PO SCH (08:32)
[2024-11-18] MEDS: SERTRALINE HCL 100 MG TABLET PO SCH (08:33)
[2024-11-18 08:34] LABS: Alanine Aminotransferase 17.0 U/L (7-52); Albumin Globulin Ratio 1.1 (0.9-2); Alkaline Phosphatase 81.0 U/L (34-104); Anion Gap 11.0 (3-11); Bilirubin,Total 0.6 mg/dl (0.2-1.0); Blood Urea Nitrogen 7.0 mg/dl (6-23); Calcium 8.2 mg/dl (8.6-10.3); Carbon Dioxide 26.0 mmol/L (21-32); Chloride 102.0 mmol/L (98-107); Creatinine Clr Calc Pharmacy 81.1 ml/min; Globulin 2.9 gm/dl (2.5-4.0); Glucose 110.0 mg/dl (70-99(Fasting)); Magnesium 2.0 mg/dl (1.7-2.4); Potassium 3.4 mmol/L (3.5-5.1); Sodium 139.0 mmol/L (136-145); Total Protein 6.0 gm/dl (6.0-8.3)
[2024-11-18] MEDS: SULINDAC 200 MG TAB PO SCH (08:34)
--- NOTE | 2024-11-18 13:17 | Hospitalist Progress Note ---
Date of Service November 18, 2024 Assessment & Plan (1) Gastroenteritis: (2) Infection due to Norovirus species: (3) C. difficile diarrhea: (4) Hypokalemia: (5) Hypomagnesemia: (6) Acute dehydration: (7) Non-healing wound of right lower extremity: (8) Seronegative polyarthritis: (9) Immunosuppression due to drug therapy: (10) Hypertension: (11) Thrombocytosis: Plan 59yo female - recent hospital stay at [facility] for norovirus gastroenteritis (11/12 to 11/15), polyarthritis on immunosuppression (followed by [facility] - on plaquenil, leflunomide, sulindac, and Taltz), HTN, GERD, Hyperlipidemia, hx of TIA, chronic pain) - returns with ongoing severe diarrhea and electrolyte abnormalities. #severe diarrhea - recent [employer] panel positive for norovirus - -patient has had diarrhea symptoms at least since ~11/06 -norovirus, even in severe cases, is self-limiting and typically improves by 5-7 days then resolves shortly after -thus, she is 10+ days with ongoing severe diarrhea which is atypical for norovirus -the frequency of her diarrhea is just as severe as when it first started earlier in October -I am suspicious she has an additional process causing the ongoing symptoms (on top of norovirus) -she was c diff gene positive (but toxin negative) during the prior admission -I repeated the c diff today - again gene + but toxin negative -there are times that there is active c diff infection but the toxin assay is negative; ie --> there are false negatives -in light of severely immunocompromised state, ongoing severe diarrhea requiring multiple hospital stays, etc. reasonable to treat for c diff infection -thus, start vancomycin 125mg qid -add colestipol once daily (interaction w/ leflunomide but this is on hold in light of infection) -replace electrolytes -supportive care -contact precautions -if she fails to improve with vanco for presumed c diff infection then would need GI consultation for additional work-up (colonoscopy, etc) -of note - last colonoscopy was 2022; 1 polyp removed, random biopsies negative #severe Hypokalemia - -2nd to severe diarrhea, low mag level, & impaired eating -potassium on arrival 2.3 -now 3.4 -can hold PO supplements for now -cont IVF with KCL -BMP in am -tomorrow, depending on K level, may need to adjust the amount of KCL in fluids (currently on 40meq/liter) -of note - mag was low, s/p replacement and now normal #Hypomagnesemia - -s/p IV Mag with resolution -2nd to severe diarrhea #chronic pain syndrome - -per the PDMP she has been getting prescriptions for oxycodone as outpatient -cont pain meds prn #Polyarthritis - HLA B27 associated, per outpatient [facility] notes - -in light of severe diarrhea infection would HOLD plaquenil and leflunomide -cont sulindac cautiously in light of GI upset (she needs something for her inflammatory arthropathy to control symptoms) #non-healing wounds, right foot - -had right foot surgery (fusion, etc) by ortho in [place] 4-6 weeks ago -2 non-healing wounds -wound care consult appreciated -saline wash, then Aquacel Ag, then covered w/ tegaderm -- per Wound Care team #HTN - -cont atenolol but hold losartan-HCTZ in light of volume contraction #chronic thrombocytosis - -platelets high going back numerous years -essential thrombocytosis? -underlying Fe deficiency? -other? -trend the CBC for stability #GERD - -cont PPI twice daily #chest pain in ER last pm - -troponin scantly elevated at 17 -this was peak, then normalized -EKG with evolving ST changes in numerous leads -- suspect due to very low potassium -however, in light of chest pain, will obtain echo #hepatic resection - -CTs show right hepatic lobe resection -reason for such ?? #DVT proph - -lovenox given recurrent admissions and weakness will obtain PT consult Admission and Anticipated Discharge Date Admission Date: November 17, 2024 Subjective patient reports her diarrhea has been present since AT least ~11/06, but she states "if my was here he would say it has been going on for weeks", "maybe even since my right foot surgery" she had a right foot fusion by a Dr Mack, foot/ankle ortho specialist in [place] (apparently is with [facility]?) surgery was 4-6 weeks ago she has 2 non-healing wounds on her right foot despite betadine application twice daily to these wounds diarrhea - 10-12+ times/day pure water no blood mild stomach discomfort at times no vomiting, some nausea however trying to drink fluids but can't keep up with diarrhea typical bowel habits - fluctuates between loose and formed, but normally just 1- 2 stools/day did have antibiotics around the time of her right foot surgery she feels weak doesn't feel ready to go home Review of Systems Review of Systems: gen - no fevers but weak cv - had chest pain in the ER; lasted several hours then self-resolved; never has had such before; does not get exertional cp/dyspnea at home pulm - no dyspnea Physical Exam Physical Exam: gen - looks tired but nontoxic, NAD, lying comfortably in bed mouth - MM slightly dry, no lesions neck - no JVD heart - RRR, s1 s2, no murmur lungs - CTA b/l abd - soft, ND, NT, BS+, no peritoneal signs, no HSM ext - trace edema b/l feet; pulses 2+ b/l psych - a/o x 3 skin - right foot - 2 ulcerations, 1 on dorsum, 1 on lateral aspect of foot; each about 1/2 to 1cm in size with overlying yellow exudate but no drainage and no cellulitis Results & Data Results & Data Vital Signs (Past 12 Hours) Vital Signs Temp Pulse Pulse Resp BP Pulse Ox O2 Del Method 11/18/24 12:17 63 11/18/24 11:38 36.6 C 64 18 126/82 96 Room Air 11/18/24 08:00 83 18 100/41 L 96 Room Air 11/18/24 07:01 70 11/18/24 04:49 66 18 139/71 95 Room Air Laboratory Results Laboratory Results - last 24 hr 11/18/24 11/18/24 07:59 Unknown WBC 11.22 H RBC 3.46 L Hgb 9.8 L Hct 28.9 L MCV 83.5 MCH 28.3 MCHC 33.9 RDW Std Deviation 43.1 RDW Coeff of Aleisa 14.0 Plt Count 533 H MPV 8.6 L Immature Gran % (Auto) 0.8 Neut % (Auto) 71.8 Lymph % (Auto) 14.6 Hall % (Auto) 11.2 Eos % (Auto) 1.2 Baso % (Auto) 0.4 Neut # (Auto) 8.06 H Lymph # (Auto) 1.64 Hall # (Auto) 1.26 H Eos # (Auto) 0.13 Baso # (Auto) 0.04 Immature Gran # (Auto) 0.09 Sodium 139 Potassium 3.4 L D Chloride 102 Carbon Dioxide 26 Anion Gap 11 BUN 7 Creatinine 0.74 Est Cr Clr Drug Dosing 81.1 eGFR 91.99 BUN/Creatinine Ratio 9.5 L Glucose 110 H Calcium 8.2 L Phosphorus 3.1 Magnesium 2.0 Total Bilirubin 0.6 AST 19 ALT 17 Alkaline Phosphatase 81 Troponin I High Sens 14.0 Total Protein 6.0 Albumin 3.1 L Globulin 2.9 Albumin/Globulin Ratio 1.1 Stl C. diff Tox B Gene Positive Cdiff Gene A Stl C.difficile Tox A&B Negative Cdiff Toxin Stl C. diff [id number] NEGATIVE Diagnostic Findings Chest X-Ray 11/17/24 20:26 Exam(s): XR CXR 1 VIEW EXAM: XR Chest, 1 View CLINICAL HISTORY: Reason for exam: Chest pain, nonspecific. TECHNIQUE: Frontal view of the chest. COMPARISON: Chest x-ray from 09/29/2023 FINDINGS: Lungs: There are several scattered thin linear densities projecting of the lung bases consistent with subsegmental atelectasis, slightly changed in configuration since previous. No significant focal consolidation is seen. Pleural space: Unremarkable. No pneumothorax. Heart: Unremarkable. No cardiomegaly. Mediastinum: Unremarkable. Normal mediastinal contour. Bones/joints: Unremarkable. No acute fracture. Upper abdomen: 3 cm elevation of the right diaphragm, unchanged. No pneumoperitoneum under the diaphragm. IMPRESSION: There are several scattered thin linear densities projecting of the lung bases consistent with subsegmental atelectasis, slightly changed in configuration since previous. No significant focal consolidation is seen. Electronically signed by: Mehul Gómez MD 11/17/24 22:55 PM PG Care Time/CCT Total # of Minutes Spent Total Time Spent with Patient: Total time spent is greater than 50% in coordination of care (as documented) at patient's floor/unit and/or counseling patient: Coding Level of Care Code 89018 SUB INP/OBS CARE 3/50MIN Diagnoses Gastroenteritis K52.9 Infection due to Norovirus species A08.11 C. difficile diarrhea A04.72 Hypokalemia E87.6 Hypomagnesemia E83.42 Acute dehydration E86.0 Non-healing wound of right lower extremity S81.801A Seronegative polyarthritis M13.0 Immunosuppression due to drug therapy D84.821; Z79.899 Hypertension I10 Thrombocytosis D75.839
[2024-11-18] MEDS: COLESTIPOL HCL 1 GM TAB PO SCH (14:58)
[2024-11-18 15:20] LABS: Cdiff Toxin B Gene (2yr or >) Positive Cdiff Gene (Neg)
[2024-11-18 16:02] LABS: Cdiff Toxin A+B Negative Cdiff Toxin (Negative)
[2024-11-18] MEDS: VANCOMYCIN HCL 125 MG/2.5ML SOLN PO SCH (18:27)
[2024-11-18] MEDS: CHERRY SYRUP 5 ML UDP PO SCH (18:27)
--- NOTE | 2024-11-18 20:19 | Electrocardiogram Report ---
Test Reason : Blood Pressure : */* mmHG Vent. Rate : 73 BPM Atrial Rate : 73 BPM P-R Int : 162 ms QRS Dur : 88 ms QT Int : 408 ms P-R-T Axes : 48 21 23 degrees QTcB Int : 449 ms Normal sinus rhythm Nonspecific T wave abnormality When compared with ECG of 17-Nov-2024 20:25, No significant change was found Confirmed by Pankaj Tong ([id number]) on 11/18/2024 8:19:46 PM Referred By: Kaity Scanlon Confirmed By: Pankaj Tong
--- NOTE | 2024-11-18 20:19 | Electrocardiogram Report ---
Test Reason : Blood Pressure : */* mmHG Vent. Rate : 75 BPM Atrial Rate : 75 BPM P-R Int : 160 ms QRS Dur : 86 ms QT Int : 412 ms P-R-T Axes : 50 17 11 degrees QTcB Int : 460 ms Normal sinus rhythm Nonspecific T wave abnormality When compared with ECG of 24-Mar-2024 11:15, Nonspecific T wave abnormality now evident in Inferior leads Nonspecific T wave abnormality now evident in Anterior leads Confirmed by Pankaj Tong ([id number]) on 11/18/2024 8:19:12 PM Referred By: Confirmed By: Pankaj Tong
--- NOTE | 2024-11-18 20:22 | Electrocardiogram Report ---
Test Reason : Blood Pressure : */* mmHG Vent. Rate : 68 BPM Atrial Rate : 68 BPM P-R Int : 172 ms QRS Dur : 90 ms QT Int : 448 ms P-R-T Axes : 54 29 36 degrees QTcB Int : 476 ms Normal sinus rhythm T wave abnormality, consider anterior ischemia Prolonged QT Abnormal ECG When compared with ECG of 17-Nov-2024 23:04, T wave inversion now evident in Anterior leads Confirmed by Pankaj Tong ([id number]) on 11/18/2024 8:22:09 PM Referred By: Kaity Scanlon Confirmed By: Pankaj Tong
--- NOTE | 2024-11-18 20:23 | Electrocardiogram Report ---
Test Reason : Blood Pressure : */* mmHG Vent. Rate : 74 BPM Atrial Rate : 74 BPM P-R Int : 170 ms QRS Dur : 88 ms QT Int : 428 ms P-R-T Axes : 56 28 41 degrees QTcB Int : 475 ms Normal sinus rhythm T wave abnormality, consider anterior ischemia When compared with ECG of 18-Nov-2024 05:10, No significant change was found Confirmed by Pankaj Tong ([id number]) on 11/18/2024 8:22:45 PM Referred By: Kaity Scanlon Confirmed By: Pankaj Tong
[2024-11-18] MEDS ORDERED: HYDROXYCHLOROQUINE SULFATE 200 MG TAB PO SCH (21:00)
[2024-11-19 06:20] LABS: Hematocrit (blood only) 29.2 % (37.0-47.0); Hemoglobin 9.4 g/dl (12.0-16.0); Immature Granulocytes # (auto) 0.10 K/uL (0.01-0.20); Immature Granulocytes % (auto) 1.0 %; Mean Corpuscular Hemoglobin 27.8 pg (25.0-34.0); Mean Corpuscular Volume 86.4 fL (80.0-100.0); Platelet Count 543 K/uL (130-400); RDW Standard Deviation 46.3 fL (36.4-46.3); Red Blood Count 3.38 M/uL (4.20-5.40); White Blood Count 10.35 K/ul (4.8-10.8)
[2024-11-19 06:35] LABS: Anion Gap 7.0 (3-11); Blood Urea Nitrogen 7.0 mg/dl (6-23); Calcium 8.2 mg/dl (8.6-10.3); Carbon Dioxide 25.0 mmol/L (21-32); Chloride 109.0 mmol/L (98-107); Creatinine Clr Calc Pharmacy 89.8 ml/min; Glucose 108.0 mg/dl (70-99(Fasting)); Potassium 3.5 mmol/L (3.5-5.1); Sodium 141.0 mmol/L (136-145)
--- NOTE | 2024-11-19 08:17 | Gastrointestinal Consultation ---
Date of Consultation November 19, 2024 Assessment & Plan (1) Acute diarrhea: Suspect etiology of acute episodes of diarrhea related to a protracted course of norovirus. Norovirus infection and symptoms can last longer in elder patients and patients immunosuppressed. Presently diarrhea has resolved. Will continue to monitor clinically. Treat symptomatically as needed. When she is able to take orally recommend lactose-free diet. No further investigated warranted at this time. History of Present Illness Reason for Consultation: Diarrhea Attending Physician: Sergio Coyne MD History of Present Illness Patient admitted to the hospital with persistent diarrhea for the last 2 weeks complicated by electrolyte light abnormalities. She has a longstanding history of chronic intermittent diarrhea with no clear precipitating factors. She had a colonoscopy a year and a half ago with normal random biopsies excluding microscopic colitis. She has had C. difficile colitis in the past. No recent travel or sick contacts. No new medications. She does take an immunosuppressive agent for rheumatoid arthritis. No family history of inflammatory bowel disease. Since admission she has had no further diarrhea. Last week her stool test was positive for norovirus. Allergies Allergy/AdvReac Type Severity Reaction Status Date / Time Sulfa (Sulfonamide Allergy Intermediate RASH Verified 11/12/24 09:51 Antibiotics) metformin AdvReac Mild Abdominal Verified 11/12/24 09:51 Pain Home Medications Medication Instructions Recorded Confirmed Type hydroxychloroquine 200 mg tablet 400 mg PO QPM 06/11/18 11/17/24 History ixekizumab 80 mg/mL subcutaneous 80 mg subcut MONTHLY 02/13/22 11/17/24 History auto-injector (Taltz Autoinjector) sulindac 200 mg tablet 200 mg PO BID 04/30/23 11/17/24 History atenolol 25 mg tablet 25 mg PO QAM 90 days #90 tabs 11/12/23 11/17/24 Rx losartan 50 mg-hydrochlorothiazide 1 tab PO QAM #90 tabs 06/21/24 11/17/24 Rx 12.5 mg tablet sertraline 100 mg tablet 200 mg (2 x 100 mg) PO QAM #180 06/27/24 11/17/24 Rx tabs atorvastatin 20 mg tablet 20 mg PO HS #90 tabs 07/28/24 11/17/24 Rx sumatriptan succinate 100 mg 100 mg PO ONCE PRN Pain #9 tabs 09/14/24 11/17/24 Rx tablet (Imitrex) pantoprazole 40 mg tablet,delayed 40 mg PO BID 4 weeks #60 tabs 10/24/24 11/17/24 Rx release (Protonix) hyoscyamine sulfate 0.125 mg tablet 0.125 mg PO BID PRN spasms #20 tabs 10/26/24 11/17/24 Rx leflunomide 10 mg tablet 10 mg PO DAILY 11/12/24 11/17/24 History bupropion HCl 150 mg 24 hr tablet, 150 mg PO QAM 11/17/24 11/17/24 History extended release famotidine 40 mg tablet 40 mg PO HS 11/17/24 11/17/24 History gabapentin 600 mg tablet 600 mg PO UD 11/17/24 11/17/24 History ondansetron HCl 8 mg tablet 8 mg PO Q8H PRN nausea and 11/17/24 11/17/24 Rx vomiting 5 days #30 tabs potassium chloride 20 mEq 20 meq PO BID #20 tabs 11/17/24 11/17/24 Rx tablet,extended release Patient History Medical History Kidney stones Thrombocytosis Arthritis Prediabetes History of COVID-19 Pneumonia Hiatal hernia Depression Migraine Surgical History History of cystoscopy Hx of lymph node excision Hx of foot surgery History of liver biopsy History of dilatation and curettage History of section History of bilateral tubal ligation History of hysterectomy History of carpal tunnel release History of repair of ACL History of lithotripsy History of esophagogastroduodenoscopy (EGD) History of colonoscopy History of appendectomy History of cholecystectomy History of tonsillectomy Family History Other No known health problems Denies family history of Ovarian cancer Prostate cancer Myocardial infarction Breast cancer Colorectal cancer Social History Smoking Status: Never smoker Second Hand Exposure: No; Do You Dip or Chew Tobacco: No; Hx Alcohol Use: No Hx Substance Use: No Preferred Language: Greenlandic Communication Ability: Effective Visual Impairment: No Limitations Regional Engagement Consultant Required: No Beliefs That Will Affect Care: None marital status: Current Living Situation: Spouse current occupational status: employed and retired current occupation: [employer]KS [employer] Feels Safe at Home: Yes Diet: regular caffeine: Yes Dental Care, Regularly: Yes Physical Activity Frequency: Daily Seatbelt Use: always Sunscreen Use: Yes Assistive Devices: Crutches and Scooter/Electric Scooter Review of Systems Review of Systems: No fever No chills No SOB No CP No Abd pain Physical Exam Physical Exam: Eyes; anicteric HENT No masses Chest clear to A Cor S1, S2 physiologic Abd: softer nontender no masses Ext no edema Results & Data Vital Signs (Past 12 Hours) Vital Signs Temp Pulse Pulse Resp BP Pulse Ox O2 Del Method 11/19/24 03:11 36.8 C 70 18 136/74 94 Room Air 11/18/24 23:29 36.9 C 70 18 124/67 95 Room Air 11/18/24 22:05 70 Laboratory Results Laboratory Results - last 48 hr 11/17/24 11/18/24 11/18/24 20:28 02:21 07:59 WBC 12.84 H 11.70 H 11.22 H RBC 3.69 L 3.44 L 3.46 L Hgb 10.6 L 9.7 L 9.8 L Hct 30.6 L 28.7 L 28.9 L MCV 82.9 83.4 83.5 MCH 28.7 28.2 28.3 MCHC 34.6 33.8 33.9 RDW Std Deviation 41.9 42.9 43.1 RDW Coeff of Alesia 13.8 14.0 14.0 Plt Count 568 H 501 H 533 H MPV 9.3 L 8.6 L 8.6 L Immature Gran % (Auto) 0.9 1.0 0.8 Neut % (Auto) 71.6 67.8 71.8 Lymph % (Auto) 14.3 17.6 14.6 Juncos % (Auto) 12.1 11.9 11.2 Eos % (Auto) 0.9 1.4 1.2 Baso % (Auto) 0.2 0.3 0.4 Neut # (Auto) 9.18 H 7.93 H 8.06 H Lymph # (Auto) 1.84 2.06 1.64 Juncos # (Auto) 1.56 H 1.39 H 1.26 H Eos # (Auto) 0.12 0.16 0.13 Baso # (Auto) 0.03 0.04 0.04 Immature Gran # (Auto) 0.11 0.12 0.09 PT 13.2 H INR 1.2 H APTT 32 H PTT Ratio 1.2 Sodium 135 L 136 139 Potassium 2.3 L* 2.5 L* 3.4 L D Chloride 96 L 97 L 102 Carbon Dioxide 28 28 26 Anion Gap 11 11 11 BUN 9 8 7 Creatinine 0.84 0.83 0.74 Est Cr Clr Drug Dosing 71.5 72.3 81.1 eGFR 79.01 80.15 91.99 BUN/Creatinine Ratio 10.7 9.6 L 9.5 L Glucose 103 H 96 110 H Calcium 8.5 L 8.2 L 8.2 L Phosphorus 3.3 3.1 Magnesium 1.5 L 2.2 2.0 Total Bilirubin 0.6 0.5 0.6 AST 22 21 19 ALT 19 17 17 Alkaline Phosphatase 86 79 81 Troponin I High Sens 17.3 H 14.9 H 14.0 Total Protein 6.3 5.9 L 6.0 Albumin 3.0 L 3.0 L 3.1 L Globulin 3.3 2.9 2.9 Albumin/Globulin Ratio 0.9 1.0 1.1 Stl C. diff Tox B Gene Stl C.difficile Tox A&B Stl C. diff [id number]-NAP1-BI 11/18/24 11/19/24 Unknown 05:57 WBC 10.35 RBC 3.38 L Hgb 9.4 L Hct 29.2 L MCV 86.4 MCH 27.8 MCHC 32.2 RDW Std Deviation 46.3 RDW Coeff of Alesia 14.6 H Plt Count 543 H MPV 8.5 L Immature Gran % (Auto) 1.0 Neut % (Auto) 70.3 Lymph % (Auto) 15.6 Juncos % (Auto) 10.3 Eos % (Auto) 2.3 Baso % (Auto) 0.5 Neut # (Auto) 7.28 H Lymph # (Auto) 1.61 Juncos # (Auto) 1.07 H Eos # (Auto) 0.24 Baso # (Auto) 0.05 Immature Gran # (Auto) 0.10 PT INR APTT PTT Ratio Sodium 141 Potassium 3.5 Chloride 109 H Carbon Dioxide 25 Anion Gap 7 BUN 7 Creatinine 0.67 Est Cr Clr Drug Dosing 89.8 eGFR 99.38 BUN/Creatinine Ratio 10.4 Glucose 108 H Calcium 8.2 L Phosphorus Magnesium Total Bilirubin AST ALT Alkaline Phosphatase Troponin I High Sens Total Protein Albumin Globulin Albumin/Globulin Ratio Stl C. diff Tox B Gene Positive Cdiff Gene A Stl C.difficile Tox A&B Negative Cdiff Toxin Stl C. diff [id number]-[id number] NEGATIVE PG Care Time/CCT Total # of Minutes Spent Total Time Spent with Patient: Total time spent is greater than 50% in coordination of care (as documented) at patient's floor/unit and/or counseling patient: Coding Level of Care Code 69994 INT INP/OBS CARE MIN Diagnoses Acute diarrhea R19.7
--- NOTE | 2024-11-19 09:08 | Hospitalist Progress Note ---
Date of Service November 19, 2024 Assessment & Plan (1) Gastroenteritis: Plan: Positive for norovirus resolving (2) Infection due to Norovirus species: Plan: -con't supportive care -diet changed to full liquids (3) C. difficile diarrhea: Plan: -reapeat c.diff negative -on vancomycin (4) Acute dehydration: Plan: -resoloved with IVF (5) Non-healing wound of right lower extremity: Plan: -had right foot surgery (fusion, etc) by ortho in [place] 4-6 weeks ago -2 non-healing wounds -wound care consult appreciated -saline wash, then Aquacel Ag, then covered w/ tegaderm -- per Wound Care team (6) Seronegative polyarthritis: Plan: HOLD plaquenil and leflunomide (7) Hypertension: Plan: cont atenolol but hold losartan-HCTZ i Plan 59yo female - recent hospital stay at [facility] for norovirus gastroenteritis ( 11/12 to 11/15), polyarthritis on immunosuppression (followed by [facility] - on plaquenil, leflunomide, sulindac, and Taltz), HTN, GERD, Hyperlipidemia, hx of TIA, chronic pain) - returns with ongoing severe diarrhea and electrolyte abnormalities. Admission and Anticipated Discharge Date Admission Date: November 17, 2024 Subjective Pt states her diarrhea has improved, still having abdominal pain and nausea. Review of Systems Review of Systems: CONST: Negative for fever, body aches and chills. HENT: Negative for neck pain/stiffness, headache, congestion, sore throat, swelling. EYES: Negative for discharge/pain or vision changes. RESP: Negative for cough/hemoptysis and shortness of breath. CV: Negative chest pain, difficulty breathing, palpitations. ABD: Negative pain, nausea, vomiting. : Negative increase frequency, dysuria, blood in urine or stool. MUSC: Negative for muscle aches, edema. SKIN: Negative rash, lesions/sores. NEURO: Negative headache, dizziness, weakness. Physical Exam Physical Exam: GENERAL APPEARANCE NAD, activity normal for age, well developed/ well nourished, no cyanosis, pallor, or diaphoresis. EYES lids/conjunctiva normal. EARS/NOSE/THROAT Mucous membranes moist, nares normal, lips/teeth normal uvula midline without oral pharyngeal erythema, exudate or swelling TMs normal bilaterally. No lymphangitis/lymphedema. HEAD/NECK normocephalic atraumatic, no facial trauma, neck is supple. RESPIRATORY respiratory effort normal, speaks in full sentences, no tripod position, no accessory muscle use. Lungs clear to auscultation without rhonchi, wheezes, rales CARDIAC Regular rate and rhythm, no edema. ABDOMINAL Soft, ND/NT. No evidence of fluid wave. No pulsatile masses on exam, rebound tenderness, Peralta sign or pain over Mcburney's point. MUSCLES/EXTREMITIES No abnormal range of motion, no swelling. SKIN Warm, pink and dry. No rashes, dermatoses, petechiae or lesions. NEUROLOGICAL Speech is clear and appropriate. Normal level of consciousness. Gait and coordination are normal. 5/5 strength in all extremities. PSYCH Normal mood and affect. Judgement/competence is appropriate Results & Data Results & Data Vital Signs (Past 12 Hours) Vital Signs Temp Pulse Pulse Resp BP Pulse Ox O2 Del Method 11/19/24 08:25 36.5 C 83 16 131/72 94 Room Air 11/19/24 03:11 36.8 C 70 18 136/74 94 Room Air 11/18/24 23:29 36.9 C 70 18 124/67 95 Room Air 11/18/24 22:05 70 PG Care Time/CCT Total # of Minutes Spent Total Time Spent with Patient: Total time spent is greater than 50% in coordination of care (as documented) at patient's floor/unit and/or counseling patient: Coding Level of Care Code 11654 SUB INP/OBS CARE 2/35MIN Diagnoses Gastroenteritis K52.9 Infection due to Norovirus species A08.11 C. difficile diarrhea A04.72 Acute dehydration E86.0 Non-healing wound of right lower extremity S81.801A Seronegative polyarthritis M13.0 Hypertension I10
--- NOTE | 2024-11-19 11:06 | XCELERA ---
[id number]
--- NOTE | 2024-11-20 08:24 | Hospitalist Progress Note ---
Date of Service November 20, 2024 Assessment & Plan (1) Gastroenteritis: Plan: Positive for norovirus resolving still with nausea (2) Infection due to Norovirus species: Plan: -con't supportive care -diet changed to full liquids (3) C. difficile diarrhea: Plan: -reapeat c.diff negative -on vancomycin (4) Acute dehydration: Plan: -resoloved with IVF (5) Non-healing wound of right lower extremity: Plan: -had right foot surgery (fusion, etc) by ortho in [place] 4-6 weeks ago -2 non-healing wounds -wound care consult appreciated -saline wash, then Aquacel Ag, then covered w/ tegaderm -- per Wound Care team (6) Seronegative polyarthritis: Plan: HOLD plaquenil and leflunomide (7) Hypertension: Plan: cont atenolol but hold losartan-HCTZ i Plan 59yo female - recent hospital stay at [facility] for norovirus gastroenteritis (11/12 to 11/15), polyarthritis on immunosuppression (followed by [facility] - on plaquenil, leflunomide, sulindac, and Taltz), HTN, GERD, Hyperlipidemia, hx of TIA, chronic pain) - returns with ongoing severe diarrhea and electrolyte abnormalities. Plan to d/c home once symptoms resolve Admission and Anticipated Discharge Date Admission Date: November 17, 2024 Subjective Pt complaining of nausea, still having diarrhea. Review of Systems Review of Systems: CONST: Negative for fever, body aches and chills. HENT: Negative for neck pain/stiffness, headache, congestion, sore throat, swelling. EYES: Negative for discharge/pain or vision changes. RESP: Negative for cough/hemoptysis and shortness of breath. CV: Negative chest pain, difficulty breathing, palpitations. ABD: Negative pain, nausea, vomiting. : Negative increase frequency, dysuria, blood in urine or stool. MUSC: Negative for muscle aches, edema. SKIN: Negative rash, lesions/sores. NEURO: Negative headache, dizziness, weakness. Physical Exam Physical Exam: GENERAL APPEARANCE NAD, activity normal for age, well developed/ well nourished, no cyanosis, pallor, or diaphoresis. EYES lids/conjunctiva normal. EARS/NOSE/THROAT Mucous membranes moist, nares normal, lips/teeth normal uvula midline without oral pharyngeal erythema, exudate or swelling TMs normal bilaterally. No lymphangitis/lymphedema. HEAD/NECK normocephalic atraumatic, no facial trauma, neck is supple. RESPIRATORY respiratory effort normal, speaks in full sentences, no tripod position, no accessory muscle use. Lungs clear to auscultation without rhonchi, wheezes, rales CARDIAC Regular rate and rhythm, no edema. ABDOMINAL Soft, ND/NT. No evidence of fluid wave. No pulsatile masses on exam, rebound tenderness, Peralta sign or pain over Mcburney's point. MUSCLES/EXTREMITIES No abnormal range of motion, no swelling. SKIN Warm, pink and dry. No rashes, dermatoses, petechiae or lesions. NEUROLOGICAL Speech is clear and appropriate. Normal level of consciousness. Gait and coordination are normal. 5/5 strength in all extremities. PSYCH Normal mood and affect. Judgement/competence is appropriate Results & Data Results & Data Vital Signs (Past 12 Hours) Vital Signs Temp Pulse Pulse Resp BP Pulse Ox O2 Del Method 11/20/24 07:08 59 L 11/20/24 02:57 37.1 C 72 18 156/91 H 95 Room Air 11/19/24 23:05 36.7 C 69 18 149/84 H 94 Room Air 11/19/24 21:49 70 PG Care Time/CCT Total # of Minutes Spent Total Time Spent with Patient: Total time spent is greater than 50% in coordination of care (as documented) at patient's floor/unit and/or counseling patient: Coding Level of Care Code 63943 SUB INP/OBS CARE 2/35MIN Diagnoses Gastroenteritis K52.9 Infection due to Norovirus species A08.11 C. difficile diarrhea A04.72 Acute dehydration E86.0 Non-healing wound of right lower extremity S81.801A Seronegative polyarthritis M13.0 Hypertension I10
[2024-11-20] MEDS: PROCHLORPERAZINE 5 MG in SYRINGE 4 ML IV PRN (13:52)
--- NOTE | 2024-11-21 09:40 | Hospitalist Progress Note ---
Date of Service November 21, 2024 Assessment & Plan (1) Gastroenteritis: Plan: Positive for norovirus resolving still with nausea (2) Infection due to Norovirus species: Plan: -con't supportive care -diet regular (3) C. difficile diarrhea: Plan: -reapeat c.diff negative -on vancomycin (4) Acute dehydration: Plan: -resoloved with IVF (5) Non-healing wound of right lower extremity: Plan: -had right foot surgery (fusion, etc) by ortho in [place] 4-6 weeks ago -2 non-healing wounds -wound care consult appreciated -saline wash, then Aquacel Ag, then covered w/ tegaderm -- per Wound Care team (6) Seronegative polyarthritis: Plan: HOLD plaquenil and leflunomide (7) Hypertension: Plan: cont atenolol but hold losartan-HCTZ i Plan 59yo female - recent hospital stay at [facility] for norovirus gastroenteritis (11/12 to 11/15), polyarthritis on immunosuppression (followed by [facility] - on plaquenil, leflunomide, sulindac, and Taltz), HTN, GERD, Hyperlipidemia, hx of TIA, chronic pain) - returns with ongoing severe diarrhea and electrolyte abnormalities. Plan to d/c home once symptoms resolve Admission and Anticipated Discharge Date Admission Date: November 17, 2024 Review of Systems Review of Systems: CONST: Negative for fever, body aches and chills. HENT: Negative for neck pain/stiffness, headache, congestion, sore throat, swelling. EYES: Negative for discharge/pain or vision changes. RESP: Negative for cough/hemoptysis and shortness of breath. CV: Negative chest pain, difficulty breathing, palpitations. ABD: Negative pain, nausea, vomiting. : Negative increase frequency, dysuria, blood in urine or stool. MUSC: Negative for muscle aches, edema. SKIN: Negative rash, lesions/sores. NEURO: Negative headache, dizziness, weakness. Physical Exam Physical Exam: GENERAL APPEARANCE NAD, activity normal for age, well developed/ well nourished, no cyanosis, pallor, or diaphoresis. EYES lids/conjunctiva normal. EARS/NOSE/THROAT Mucous membranes moist, nares normal, lips/teeth normal uvula midline without oral pharyngeal erythema, exudate or swelling TMs normal bilaterally. No lymphangitis/lymphedema. HEAD/NECK normocephalic atraumatic, no facial trauma, neck is supple. RESPIRATORY respiratory effort normal, speaks in full sentences, no tripod position, no accessory muscle use. Lungs clear to auscultation without rhonchi, wheezes, rales CARDIAC Regular rate and rhythm, no edema. ABDOMINAL Soft, ND/NT. No evidence of fluid wave. No pulsatile masses on exam, rebound tenderness, Peralta sign or pain over Mcburney's point. MUSCLES/EXTREMITIES No abnormal range of motion, no swelling. SKIN Warm, pink and dry. No rashes, dermatoses, petechiae or lesions. NEUROLOGICAL Speech is clear and appropriate. Normal level of consciousness. Gait and coordination are normal. 5/5 strength in all extremities. PSYCH Normal mood and affect. Judgement/competence is appropriate Results & Data Results & Data Vital Signs (Past 12 Hours) Vital Signs Temp Pulse Pulse Resp BP Pulse Ox O2 Del Method 11/21/24 07:56 54 L 11/21/24 07:00 36.8 C 77 18 134/78 96 Room Air 11/21/24 02:55 36.9 C 67 16 158/92 H 94 Room Air 11/20/24 23:00 37.2 C 85 18 135/67 94 Room Air 11/20/24 22:12 66 PG Care Time/CCT Total # of Minutes Spent Total Time Spent with Patient: Total time spent is greater than 50% in coordination of care (as documented) at patient's floor/unit and/or counseling patient: Coding Level of Care Code 62559 SUB INP/OBS CARE 2/35MIN Diagnoses Gastroenteritis K52.9 Infection due to Norovirus species A08.11 C. difficile diarrhea A04.72 Acute dehydration E86.0 Non-healing wound of right lower extremity S81.801A Seronegative polyarthritis M13.0 Hypertension I10
[2024-11-21 19:08] LABS: Hematocrit (blood only) 33.5 % (37.0-47.0); Hemoglobin 10.5 g/dl (12.0-16.0); Mean Corpuscular Hemoglobin 27.9 pg (25.0-34.0); Mean Corpuscular Volume 88.9 fL (80.0-100.0); Platelet Count 545 K/uL (130-400); RDW Standard Deviation 47.2 fL (36.4-46.3); Red Blood Count 3.77 M/uL (4.20-5.40); White Blood Count 13.50 K/ul (4.8-10.8)
[2024-11-21 19:55] VITALS: RESP 18
[2024-11-21 20:00] LABS: Anion Gap 11.0 (3-11); Calcium 8.7 mg/dl (8.6-10.3); Carbon Dioxide 21.0 mmol/L (21-32); Chloride 106.0 mmol/L (98-107); Magnesium 1.6 mg/dl (1.7-2.4); Potassium 3.9 mmol/L (3.5-5.1); Sodium 138.0 mmol/L (136-145)
[2024-11-21 20:06] LABS: Blood Urea Nitrogen 8.0 mg/dl (6-23); Creatinine Clr Calc Pharmacy 71.6 ml/min; Glucose 79.0 mg/dl (70-99(Fasting))
[2024-11-21] MEDS: MAGNESIUM SULFATE / D5W 1 GM/100 ML BAG IV ONE (21:07)
[2024-11-22 07:43] VITALS: BP 158/100; PULSE 55; TEMP 98.2; O2SAT 96
[2024-11-22] MEDS: MAGNESIUM SULFATE / D5W 1 GM/100 ML BAG IV ONE (07:48)
--- NOTE | 2024-11-22 09:57 | Discharge Summary ---
Discharge Summary Date of Service November 22, 2024 Principal Dx & Hospital Course #1 = Principal Diagnosis (1) Gastroenteritis: Positive for norovirus resolving still with nausea (2) Infection due to Norovirus species: -con't supportive care -diet regular (3) C. difficile diarrhea: -reapeat c.diff negative -on vancomycin (4) Acute dehydration: -resoloved with IVF (5) Non-healing wound of right lower extremity: -had right foot surgery (fusion, etc) by ortho in [place] 4-6 weeks ago -2 non-healing wounds -wound care consult appreciated -saline wash, then Aquacel Ag, then covered w/ tegaderm -- per Wound Care team (6) Seronegative polyarthritis: HOLD plaquenil and leflunomide (7) Hypertension: cont atenolol but hold losartan-HCTZ i Plan 59yo female - recent hospital stay at [facility] for norovirus gastroenteritis (11/12 to 11/15), polyarthritis on immunosuppression (followed by [facility] - on plaquenil, leflunomide, sulindac, and Taltz), HTN, GERD, Hyperlipidemia, hx of TIA, chronic pain) - returns with ongoing severe diarrhea and electrolyte abnormalities. Plan to d/c home once symptoms resolve Admission HPI Per Admitting Provider This is a 59 year old female with a PMH of chronic C diff infection, recent viral gastroenteritis, polyarthritis on immunosuppression, HTN, GERD, HLD, hx of TIA, chronic pain - coming in with significant diarrhea. On arrival here, she had low potassium and low magnesium. She has been seen multiple times for diarrhea; not on abx as she is likely a chronic carrier of C diff. Recently she was diagnosed with norovirus gastroenteritis. States she has chest pain. EKG done with no ST-T wave changes. Discharge Exam GENERAL APPEARANCE NAD, activity normal for age, well developed/ well nourished, no cyanosis, pallor, or diaphoresis. EYES lids/conjunctiva normal. EARS/NOSE/THROAT Mucous membranes moist, nares normal, lips/teeth normal uvula midline without oral pharyngeal erythema, exudate or swelling TMs normal bilaterally. No lymphangitis/lymphedema. HEAD/NECK normocephalic atraumatic, no facial trauma, neck is supple. RESPIRATORY respiratory effort normal, speaks in full sentences, no tripod position, no accessory muscle use. Lungs clear to auscultation without rhonchi, wheezes, rales CARDIAC Regular rate and rhythm, no edema. ABDOMINAL Soft, ND/NT. No evidence of fluid wave. No pulsatile masses on exam, rebound tenderness, Peralta sign or pain over Mcburney's point. MUSCLES/EXTREMITIES No abnormal range of motion, no swelling. SKIN Warm, pink and dry. No rashes, dermatoses, petechiae or lesions. NEUROLOGICAL Speech is clear and appropriate. Normal level of consciousness. Gait and coordination are normal. 5/5 strength in all extremities. PSYCH Normal mood and affect. Judgement/competence is appropriate Discharge Plan Discharge Items Patient Disposition: Home - Self-Care Reason For Visit: DEHYDRATION, HYPOKALEMIA Discharge Diagnosis: Norovirus Condition on Discharge: Fair Activity: Resume your previous activity Non-emergency contact: Primary Care Provider Call non-emergency contact if: you have any medication questions Follow-up/Referrals: Kaity Scanlon MD [Primary Care Provider] - Diet: Regular Addtl Attending Provider Instructions: Follow up with PMD in 2 weeks Pending Studies at Discharge: No Stand-Alone Forms: My [employer]visors, Smoking Cessation Medications and DC Order Prescriptions: Continued sulindac 200 mg tablet 200 mg PO BID Hold Instructions: GI symptoms Patient Comments: 11/16-Per patient she is not taking at this time Rx Instructions: currently on hold atenolol 25 mg tablet 25 mg PO QAM 90 Days Qty: 90 4RF losartan-hydrochlorothiazide 50-12.5 mg tablet 1 tab PO QAM Qty: 90 3RF sertraline 100 mg tablet 200 mg PO QAM Qty: 180 3RF atorvastatin 20 mg tablet 20 mg PO HS Qty: 90 3RF sumatriptan succinate [Imitrex] 100 mg tablet 100 mg PO ONCE PRN (Reason: Pain) Qty: 9 5RF Rx Instructions: TAKE 1 TABLET AT ONSET OF MIGRAINE HEADACHE. MAY REPEAT IN 2 HOURS IF NEEDED pantoprazole [Protonix] 40 mg tablet,delayed release (DR/EC) 40 mg PO BID 28 Days Qty: 60 1RF hyoscyamine sulfate 0.125 mg tablet 0.125 mg PO BID PRN (Reason: spasms) Qty: 20 0RF ondansetron HCl 8 mg tablet 8 mg PO Q8H PRN (Reason: nausea and vomiting) 5 Days Qty: 30 2RF potassium chloride 20 mEq tablet extended release 20 meq PO BID Qty: 20 2RF Rx Instructions: has not started med Taltz Autoinjector 80 mg/mL auto-injector 80 mg subcut MONTHLY Hold Instructions: Resume on 11/20/24. hydroxychloroquine 200 mg tablet 400 mg PO QPM Hold Instructions: Resume on 11/20/24. leflunomide 10 mg tablet 10 mg PO DAILY Hold Instructions: Resume on 11/19/24. gabapentin 600 mg tablet 600 mg PO UD Rx Instructions: ordered tid but patient is holding currently bupropion HCl 150 mg tablet extended release 24 hr 150 mg PO QAM famotidine 40 mg tablet 40 mg PO HS Discharge Orders: Discharge Order (Routine); Ordered 11/22/24 Ordered By: Sergio Coyne Admission Data Admit Date/Time: 11/17/24 22:10 Attending Provider: Sergio Coyne Admit Provider: Kirby Pop Primary Care Provider: Kaity Scanlon Other Providers: Donnie Alvarez; Eran Wu I Hospital Stay Data Consultations 11/17/24 21:52 ED Decision to Admit Stat 11/19/24 07:36 Consult Gastroenterology Routine Pending Results Patient Have Any Pending Studies at Discharge: No Discharge Instructions Given to Patient (Per Discharging Provider) Follow up with PMD in 2 weeks Total Time Total Time Spent Total Time Spent (In Minutes): 50 Coding Level of Care Code 14521 INP/OBS DISCH >30 MIN Diagnoses Gastroenteritis K52.9 Infection due to Norovirus species A08.11 C. difficile diarrhea A04.72 Acute dehydration E86.0 Non-healing wound of right lower extremity S81.801A Seronegative polyarthritis M13.0 Hypertension I10
[2024-11-23] MEDS ORDERED: COLESTIPOL HCL 1 GM TAB PO SCH (07:30)
== END 2024-11-22 11:30 | disposition home or self-care (01) | DRG 392 ==
LOC: ED 20:13 → SUATTDRO 22:10 → EDINP 22:10 → 2E 11-18 00:55